=== PATIENT | male | born 1975 | race Caucasian/White ===

== ENCOUNTER 2019-03-20 10:44 | Inpatient (IN) | payer OTHER ==
[2019-03-20 11:32] VITALS: BMI 23.6
--- NOTE | 2019-03-20 12:32 | HP ---
CIWA Score Nausea/Vomitin Muscle Tremors: 2 Anxiety: 3 Agitation: 3 Paroxysmal Sweats: 1-Minimal Palms Moist Orientation: 0-Oriented Tacttile Disturbances: 1-Very Mild Itch/Numbness Auditory Disturbances: 1-Very Mild Visual Disturbances: 0-None Headache: 2-Mild CIWA-Ar Total Score: 15 - Admission Criteria OASAS Guidelines: Admission for Medically Managed Detox: Requires at least one of the followin. CIWA greater than 12 2. Seizures within the past 24 hours 3. Delirium tremens within the past 24 hours 4. Hallucinations within the past 24 hours 5. Acute intervention needed for co occurring medical disorder 6. Acute intervention needed for co occurring psychiatric disorder 7. Severe withdrawal that cannot be handled at a lower level of care (continued vomiting, continued diarrhea, abnormal vital signs) requiring intravenous medication and/or fluids 8. Admission ROS S - HPI Chief Complaint: i need help to stop drinking alcohol,marijuana Allergies/Adverse Reactions: Allergies Allergy/AdvReac Type Severity Reaction Status Date / Time No Known Allergies Allergy Verified 03/20/19 11:23 History of Present Illness: this 43 years old male with alcohol dependence,marijuana abused,seeking detox, withdrawal symptom, seen in [facility] last night, alcohol related seizure in 2016 syncope alcohol related,last 03/19/19 receiving medication at [facility] last detox in 2014 [place] ambulation with cane homeless, bipolar disorder,no med hepatitis c fx of right elbow 10/26 treated at [facility] with deformity - Ebola screening Have you traveled outside of the country in the last 21 days: No (N) Have you had contact with anyone from an Ebola affected area: No Do you have a fever: No - Review of Systems Constitutional: Chills, Loss of Appetite, Malaise, Night Sweats, Changes in sleep, Weakness, Unintentional Wgt. Loss EENT: reports: Nose Congestion Respiratory: reports: No Symptoms reported Cardiac: reports: No Symptoms Reported GI: reports: Nausea, Poor Appetite, Vomiting, Abdominal cramping : reports: No Symptoms Reported Musculoskeletal: reports: Back Pain, Muscle Pain Integumentary: reports: Dryness Neuro: reports: Headache, Tremors Endocrine: reports: No Symptoms Reported Hematology: reports: No Symptoms Reported Psychiatric: reports: No Sypmtoms Reported, Judgement Intact, Mood/Affect Appropiate, Orientated x3, other (bipolar disorder) Other Systems: Reviewed and Negative Patient History - Patient Medical History Hx Anemia: No Hx Asthma: No Hx Chronic Obstructive Pulmonary Disease (COPD): No Hx Cancer: No Hx Cardiac Disorders: No Hx Congestive Heart Failure: No Hx Hypertension: Yes (no med) Hx Hypercholesterolemia: No Hx Pacemaker: No HX Cerebrovascular Accident: No Hx Seizures: Yes (last 2015) Hx Dementia: No Hx Diabetes: No Hx Gastrointestinal Disorders: No Hx Liver Disease: No Hx Genitourinary Disorders: No Hx Sexually Transmitted Disorders: No Hx Renal Disease (ESRD): No Hx Thyroid Disease: No Hx Human Immunodeficiency Virus (HIV): No (2017 negative) Hx Hepatitis C: Yes (no treatment) Hx Depression: No Hx Suicide Attempt: No Hx Bipolar Disorder: Yes Hx Schizophrenia: No Other Medical History: no suicidal,no homicidal - Patient Surgical History Past Surgical History: No Other Surgical History: fx of right elbow 10/26 treated at [facility] - PPD History Previous Implant?: Yes Documented Results: Negative w/o proof Implanted On Prior [facility] Admission?: No PPD to be Administered?: Yes - Smoking Cessation Smoking history: Current every day smoker Have you smoked in the past 12 months: Yes Aproximately how many cigarettes per day: 20 Cigars Per Day: 0 Hx Chewing Tobacco Use: No Initiated information on smoking cessation: Yes 'Breaking Loose' booklet given: 03/20/19 - Substance & Tx. History Hx Alcohol Use: Yes Hx Substance Use: No Substance Use Type: Alcohol Hx Substance Use Treatment: Yes ([facility]) - Substances abused Alcohol Substance route: Oral Frequency: Daily Amount used: 6 pints of liquor,vodka,whiskey/2 of 6packs of 24 ozs of beer Age of first use: 12 Date of last use: 03/19/19 Marijuana/Hashish Substance route: Smoking Frequency: 1-2 times per week Amount used: 5$ Age of first use: 12 Date of last use: 03/19/19 Family Disease History - Family Disease History Family Disease History: Other: Father (alcohol,) Admission Physical Exam [facility] - Vital Signs Vital Signs: Vital Signs - 24 hr 03/20/19 11:12 Temperature 97.0 F L Pulse Rate 60 Respiratory 16 Rate Blood Pressure 127/88 - Physical General Appearance: Yes: Moderate Distress, Tremorous, Irritable, Sweating, Anxious HEENTM: Yes: Normal ENT Inspection, MISAEL, Pharynx Normal Respiratory: Yes: Lungs Clear, Normal Breath Sounds, No Respiratory Distress Neck: Yes: Within Normal Limits, Supple, Trachea in good position Breast: Yes: Within Normal Limits Cardiology: Yes: Within Normal Limits, Regular Rhythm, Regular Rate, S1, S2 Abdominal: Yes: Within Normal Limits, Normal Bowel Sounds, Non Tender, Flat, Soft Genitourinary: Yes: Within Normal Limits Back: Yes: Muscle Spasm Musculoskeletal: Yes: full range of Motion, Back pain, Muscle Pain Extremities: Yes: Within Normal Limits, Normal Range of Motion, Tremors, Other ( deformity of right elbow from prvious fx in 10/26 excoriation of skin both feet, poor hygiene) 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: Yes: 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, Fully Oriented, Alert, Motor Strength 5/5 Integumentary: Yes: Dry Lymphatic: Yes: Within Normal Limits - Diagnostic (1) Alcohol dependence with uncomplicated withdrawal Current Visit: Yes Status: Acute (2) Alcohol dependence with uncomplicated intoxication Current Visit: Yes Status: Acute (3) Alcohol related seizure Current Visit: Yes Status: Acute (4) Fracture of right elbow Current Visit: Yes Status: Acute (5) Acquired deformity of right elbow Current Visit: Yes Status: Acute (6) Dehydration Current Visit: Yes Status: Acute (7) Nicotine dependence Current Visit: Yes Status: Acute (8) Use of cane as ambulatory aid Current Visit: Yes Status: Acute (9) Hepatitis C Current Visit: Yes Status: Acute (10) Excoriation Current Visit: Yes Status: Acute Cleared for Admission S - Detox or Rehab [facility] Level of Care: Medically Managed (patient requested librium) Detox Regimen/Protocol: Librium Inpatient Rehab Admission - Rehab Decision to Admit Inpatient rehab admission?: No
[2019-03-20] MEDS ORDERED: chlordiazePOXIDE HCL 25 MG CAPSULE PO PRN (12:51)
[2019-03-20] MEDS ORDERED: MAG HYDROX/AL HYDROX/SIMETH 30 ML UNIT-DOSE CUP PO PRN (12:51)
[2019-03-20] MEDS ORDERED: MENTHOL/PHENOL 1 EACH UD MM PRN (12:51)
[2019-03-20] MEDS ORDERED: MAGNESIUM HYDROX 2400MG/30ML ORAL SUSPENSION 30 ML CUP PO PRN (12:51)
[2019-03-20] MEDS ORDERED: hydrOXYzine PAMOATE 25 MG CAPSULE (FP) PO PRN (12:51)
[2019-03-20] MEDS ORDERED: NICOTINE POLACRILEX 2 MG GUM BUC PRN (12:51)
[2019-03-20] MEDS ORDERED: ACETAMINOPHEN 325 MG TABLET (FP) PO PRN ×2 (12:51)
[2019-03-20] MEDS ORDERED: METHOCARBAMOL 500 MG TABLET PO PRN (12:51)
[2019-03-20] MEDS ORDERED: MAGNESIUM CITRATE 300 ML BOTTLE PO PRN (12:51)
[2019-03-20] MEDS ORDERED: BISMUTH SUBSALICYLATE 262 MG/15 ML BTL PO PRN (12:51)
[2019-03-20] MEDS ORDERED: TRIMETHOBENZAMIDE HCL 200MG/2ML INJ IM PRN (12:57)
[2019-03-20] MEDS: NICOTINE 21 MG/24 HOURS TOPICAL PATCH TD SCH (14:16)
[2019-03-20] MEDS: SILVER SULFADIAZINE 1% TOP CREAM 50 GM JAR TP SCH ×2 (15:34→22:55)
[2019-03-20] MEDS: chlordiazePOXIDE HCL 25 MG CAPSULE PO SCH ×2 (17:29→22:31)
[2019-03-20 17:56] LABS: HEMOGLOBIN 12.5 GM/dL (11.7-16.9); MCH 27.5 pg (25.7-33.7); MEAN PLT VOLUME 7.6 fl (7.5-11.1); PLATELET COUNT 213 K/MM3 (134-434); RBC 4.53 M/mm3 (4.00-5.60); RDW 16.1 % (11.9-15.9); WHITE BLOOD COUNT 5.1 K/mm3 (4.0-10.0)
[2019-03-20 18:19] LABS: ALBUMIN 4.2 g/dl (3.4-5.0); BILIRUBIN,TOTAL 0.4 mg/dL (0.2-1); CALCIUM 8.8 mg/dL (8.5-10.1); CREATININE 0.8 mg/dL (0.55-1.3); POTASSIUM 4.2 mmol/L (3.5-5.1); TOT PROT 8.3 g/dl (6.4-8.2)
[2019-03-20 18:22] LABS: BLOOD UREA NITROGEN 2.9 mg/dL (7-18)
[2019-03-20 19:48] LABS: EPI CELLS 4.1 /HPF (0-5/HPF); PH,URINE 5.5 (5.0-8.0); URINE APPEARANCE CLEAR; URINE BILIRUBIN NEGATIVE (NEGATIVE); URINE COLOR YELLOW; URINE GLUCOSE (UA) NEGATIVE (NEGATIVE); URINE KETONE NEGATIVE (NEGATIVE); URINE LEUK ESTERASE NEGATIVE (NEGATIVE); URINE NITRITE NEGATIVE (NEGATIVE); URINE PROTEIN 1+ (NEGATIVE); URINE RBC 1 /hpf (0-4); URINE WBC 5 /hpf (0-5)
[2019-03-20] MEDS: THIAMINE HCL 100 MG TABLET (FP) PO SCH (22:31)
[2019-03-21] MEDS: chlordiazePOXIDE HCL 25 MG CAPSULE PO SCH ×4 (06:13→22:10)
[2019-03-21 10:13] LABS: ALBUMIN 3.3 g/dl (3.4-5.0); BILIRUBIN,TOTAL 0.7 mg/dL (0.2-1); BLOOD UREA NITROGEN 5.4 mg/dL (7-18); CALCIUM 9.1 mg/dL (8.5-10.1); POTASSIUM 4.5 mmol/L (3.5-5.1)
--- NOTE | 2019-03-21 10:19 | CONSULT ---
[facility] Psychiatric Consult - Data Date of interview: 03/21/19 Admission source: [facility] Identifying data: Patient is a 43 year old but , father of one , unemployed, homeless, and does not receive any financial assistance. This is patient's first admission to detox at [facility]. Patient admitted to for alcohol dependence. Substance Abuse History: Smoking Cessation. Smoking history: Current every day smoker. Have you smoked in the past 12 months: Yes. Aproximately how many cigarettes per day: 20. Cigars Per Day: 0. Hx Chewing Tobacco Use: No. Initiated information on smoking cessation: Yes. 'Breaking Loose' booklet given : 03/20/19. - Substance & Tx. History. Hx Alcohol Use: Yes. Hx Substance Use : No. Substance Use Type: Alcohol. Hx Substance Use Treatment: Yes ([facility]). - Substances abused. Alcohol. Substance route: Oral. Frequency: Daily. Amount used: 6 pints of liquor,vodka,whiskey/2 of 6packs of 24 ozs of beer. Age of first use: 12. Date of last use: 03/19/19. Marijuana/Hashish. Substance route: Smoking. Frequency: 1-2 times per week. Amount used: 5$. Age of first use: 12. Date of last use: 03/19/19 Medical History: Hypertension, seizures (last 2015), Hep C Psychiatric History: Patient denies h/o psychiatric hospitalizations and suicide attempt. Patient reports seeing a physician approximately seven years ago who diagnosed him with mood disorder. He reports taking medications but does not recall the names or dosages of the medications. At present, patient reports stable mood and reports not needing psychiatric treatment. Physical/Sexual Abuse/Trauma History: denies. Mental Status Exam - Mental Status Exam Alert and Oriented to: Time, Place, Person Cognitive Function: Good Patient Appearance: Well Groomed Mood: Euthymic Affect: Appropriate Patient Behavior: Cooperative Voice Loudness: Normal Thought Process: Goal Oriented Thought Disorder: Not Present Hallucinations: Denies Suicidal Ideation: Denies Homicidal Ideation: Denies Insight/Judgement: Poor Sleep: Fair Appetite: Fair Muscle strength/Tone: Normal Gait/Station: Normal Psychiatric Findings - Problem List ([place] 1, 2,3) (1) Alcohol dependence with uncomplicated intoxication Current Visit: Yes Status: Acute (2) Alcohol dependence with uncomplicated withdrawal Current Visit: Yes Status: Acute (3) Nicotine dependence Current Visit: Yes Status: Acute - Initial Treatment Plan Initial Treatment Plan: Psychoeducation provided. Detoxification in progress. Observation.
[2019-03-21] MEDS: NICOTINE 21 MG/24 HOURS TOPICAL PATCH TD SCH (10:45)
[2019-03-21] MEDS: PRENATAL VITAMINS W/ FOLIC ACID TABLET (FP) PO SCH (10:45)
[2019-03-21] MEDS: SILVER SULFADIAZINE 1% TOP CREAM 50 GM JAR TP SCH ×2 (10:46→22:12)
--- NOTE | 2019-03-21 10:57 | EKG ---
Test Reason : Blood Pressure : / mmHG Vent. Rate : 068 BPM Atrial Rate : 068 BPM P-R Int : 170 ms QRS Dur : 086 ms QT Int : 388 ms P-R-T Axes : 024 003 040 degrees QTc Int : 412 ms NORMAL SINUS RHYTHM NORMAL ECG NO PREVIOUS ECGS AVAILABLE Confirmed by BRAD COREA MD ([id number]) on 03/21/2019 10:57:26 AM Referred By: Confirmed By:BRAD COREA MD
--- NOTE | 2019-03-21 12:12 | PN ---
S CIWA - CIWA Score Nausea/Vomitin-Mild Nausea/No Vomiting Muscle Tremors: 2 Anxiety: 3 Agitation: 2 Paroxysmal Sweats: 3 Orientation: 0-Oriented Tacttile Disturbances: 2-Mild Itch/Numbness/Burn Auditory Disturbances: 0-None Visual Disturbances: 0-None Headache: 0-None Present CIWA-Ar Total Score: 13 BHS Progress Note (SOAP) Subjective: interrupted sleep, sweats, shakes, rt leg , ankle pain Objective: 03/21/19 12:18 Vital Signs Temperature 98.2 F 03/21/19 09:42 Pulse Rate 93 H 03/21/19 09:42 Respiratory Rate 17 03/21/19 09:42 Blood Pressure 131/90 03/21/19 09:42 O2 Sat by Pulse Oximetry (%) Laboratory Tests 03/20/19 03/20/19 03/20/19 13:00 13:00 13:00 WBC 5.1 RBC 4.53 Hgb 12.5 Hct 39.0 MCV 86.0 MCH 27.5 MCHC 32.0 RDW 16.1 H Plt Count 213 MPV 7.6 Sodium Potassium Chloride Carbon Dioxide Anion Gap BUN Creatinine Est GFR (CKD-EPI)AfAm Est GFR (CKD-EPI)NonAf Random Glucose Calcium Total Bilirubin AST ALT Alkaline Phosphatase Total Protein Albumin Urine Color Yellow Urine Appearance Clear Urine pH 5.5 Ur Specific [place] 1.017 Urine Protein 1+ H Urine Glucose (UA) Negative Urine Ketones Negative Urine Blood Negative Urine Nitrite Negative Urine Bilirubin Negative Urine Urobilinogen 1.0 Ur Leukocyte Esterase Negative Urine WBC (Auto) 5 Urine RBC (Auto) 1 U Epithel Cells (Auto) 4.1 RPR Titer HIV 1&2 Antibody Screen Negative HIV P24 Antigen Negative 03/20/19 03/20/19 03/21/19 13:00 13:00 07:00 WBC RBC Hgb Hct MCV MCH MCHC RDW Plt Count MPV Sodium 139 138 Potassium 4.2 4.5 Chloride 100 98 Carbon Dioxide 30 35 H Anion Gap 9 5 L BUN 2.9 L* 5.4 L Creatinine 0.8 1.0 Est GFR (CKD-EPI)AfAm 125.92 105.62 Est GFR (CKD-EPI)NonAf 108.65 91.13 Random Glucose 129 H 92 Calcium 8.8 9.1 Total Bilirubin 0.4 0.7 AST 44 H 36 ALT 38 32 Alkaline Phosphatase 187 H 159 H Total Protein 8.3 H 7.0 Albumin 4.2 3.3 L Urine Color Urine Appearance Urine pH Ur Specific [place] Urine Protein Urine Glucose (UA) Urine Ketones Urine Blood Urine Nitrite Urine Bilirubin Urine Urobilinogen Ur Leukocyte Esterase Urine WBC (Auto) Urine RBC (Auto) U Epithel Cells (Auto) RPR Titer Nonreactive HIV 1&2 Antibody Screen HIV P24 Antigen pt aox3 lying in bed , uses a cane for ambulation Assessment: 03/21/19 12:19 withdrawal sx's rt leg, ankle pain - s/p surgery Plan: cont. present tx motrin prn increase fluids
[2019-03-21] MEDS: THIAMINE HCL 100 MG TABLET (FP) PO SCH (22:10)
[2019-03-22] MEDS: chlordiazePOXIDE HCL 25 MG CAPSULE PO SCH ×2 (06:31→10:35)
[2019-03-22] MEDS: NICOTINE 21 MG/24 HOURS TOPICAL PATCH TD SCH (10:35)
[2019-03-22] MEDS: PRENATAL VITAMINS W/ FOLIC ACID TABLET (FP) PO SCH (10:35)
[2019-03-22] MEDS: SILVER SULFADIAZINE 1% TOP CREAM 50 GM JAR TP SCH ×2 (10:36→22:46)
[2019-03-22] MEDS ORDERED: chlordiazePOXIDE HCL 10 MG CAPSULE PO PRN (17:00)
--- NOTE | 2019-03-22 18:02 | PN ---
S CIWA - CIWA Score Nausea/Vomitin-Mild Nausea/No Vomiting Muscle Tremors: 2 Anxiety: 3 Agitation: 3 Paroxysmal Sweats: 3 Orientation: 0-Oriented Tacttile Disturbances: 0-None Auditory Disturbances: 0-None Visual Disturbances: 0-None Headache: 0-None Present CIWA-Ar Total Score: 12 S Progress Note (SOAP) Subjective: constipation Chronic R knee pain Objective: 03/22/19 18:02 ambulates with a cane A & O x 3 Vital Signs Temperature 98.2 F 03/22/19 17:56 Pulse Rate 85 03/22/19 17:56 Respiratory Rate 20 03/22/19 17:56 Blood Pressure 117/82 03/22/19 17:56 O2 Sat by Pulse Oximetry (%) Assessment: 03/22/19 18:04 withdrawal sx Chronic pain Plan: Continue detox Pain med as needed
[2019-03-22] MEDS: IBUPROFEN 400 MG TABLET (FP) PO PRN (18:08)
[2019-03-22] MEDS: chlordiazePOXIDE HCL 10 MG CAPSULE PO SCH ×2 (18:08→22:23)
[2019-03-22] MEDS: MELATONIN 5 MG TABLETS PO PRN (22:23)
[2019-03-22] MEDS: THIAMINE HCL 100 MG TABLET (FP) PO SCH (22:23)
[2019-03-23] MEDS: chlordiazePOXIDE HCL 10 MG CAPSULE PO SCH ×3 (06:42→16:46)
[2019-03-23] MEDS: SILVER SULFADIAZINE 1% TOP CREAM 50 GM JAR TP SCH ×2 (10:15→22:12)
[2019-03-23] MEDS: PRENATAL VITAMINS W/ FOLIC ACID TABLET (FP) PO SCH (10:15)
[2019-03-23] MEDS: NICOTINE 21 MG/24 HOURS TOPICAL PATCH TD SCH (10:16)
--- NOTE | 2019-03-23 13:59 | PN ---
[facility] CIWA - CIWA Score Nausea/Vomitin-No Nausea/No Vomiting Muscle Tremors: 3 Anxiety: 2 Agitation: 3 Paroxysmal Sweats: 3 Orientation: 0-Oriented Tacttile Disturbances: 0-None Auditory Disturbances: 0-None Visual Disturbances: 0-None Headache: 0-None Present CIWA-Ar Total Score: 11 S Progress Note (SOAP) Subjective: leg pain sweats Objective: 03/23/19 13:59 Vital Signs Temperature 98.2 F 03/23/19 09:28 Pulse Rate 84 03/23/19 09:28 Respiratory Rate 16 03/23/19 09:28 Blood Pressure 123/87 03/23/19 09:28 O2 Sat by Pulse Oximetry (%) Laboratory Tests 03/20/19 03/20/19 03/20/19 13:00 13:00 13:00 WBC 5.1 RBC 4.53 Hgb 12.5 Hct 39.0 MCV 86.0 MCH 27.5 MCHC 32.0 RDW 16.1 H Plt Count 213 MPV 7.6 Sodium Potassium Chloride Carbon Dioxide Anion Gap BUN Creatinine Est GFR (CKD-EPI)AfAm Est GFR (CKD-EPI)NonAf Random Glucose Calcium Total Bilirubin AST ALT Alkaline Phosphatase Total Protein Albumin Urine Color Yellow Urine Appearance Clear Urine pH 5.5 Ur Specific [place] 1.017 Urine Protein 1+ H Urine Glucose (UA) Negative Urine Ketones Negative Urine Blood Negative Urine Nitrite Negative Urine Bilirubin Negative Urine Urobilinogen 1.0 Ur Leukocyte Esterase Negative Urine WBC (Auto) 5 Urine RBC (Auto) 1 U Epithel Cells (Auto) 4.1 RPR Titer HIV 1&2 Antibody Screen Negative HIV P24 Antigen Negative 03/20/19 03/20/19 03/21/19 13:00 13:00 07:00 WBC RBC Hgb Hct MCV MCH MCHC RDW Plt Count MPV Sodium 139 138 Potassium 4.2 4.5 Chloride 100 98 Carbon Dioxide 30 35 H Anion Gap 9 5 L BUN 2.9 L* 5.4 L Creatinine 0.8 1.0 Est GFR (CKD-EPI)AfAm 125.92 105.62 Est GFR (CKD-EPI)NonAf 108.65 91.13 Random Glucose 129 H 92 Calcium 8.8 9.1 Total Bilirubin 0.4 0.7 AST 44 H 36 ALT 38 32 Alkaline Phosphatase 187 H 159 H Total Protein 8.3 H 7.0 Albumin 4.2 3.3 L Urine Color Urine Appearance Urine pH Ur Specific [place] Urine Protein Urine Glucose (UA) Urine Ketones Urine Blood Urine Nitrite Urine Bilirubin Urine Urobilinogen Ur Leukocyte Esterase Urine WBC (Auto) Urine RBC (Auto) U Epithel Cells (Auto) RPR Titer Nonreactive HIV 1&2 Antibody Screen HIV P24 Antigen aaox3 ambulating no acute distress Assessment: 03/23/19 13:59 mild withdrawal sx Plan: continue detox increase fluids motrin 800mg prn roboxin prn
[2019-03-23] MEDS: THIAMINE HCL 100 MG TABLET (FP) PO SCH (22:12)
[2019-03-23] MEDS: MELATONIN 5 MG TABLETS PO PRN (22:12)
[2019-03-24] MEDS: chlordiazePOXIDE HCL 10 MG CAPSULE PO SCH (06:05)
[2019-03-24] MEDS: IBUPROFEN 400 MG TABLET (FP) PO PRN (08:46)
--- NOTE | 2019-03-24 08:58 | DS ---
[facility] Detox Discharge Summary Admission Date: 03/20/19 Discharge Date: 03/24/19 - History Present History: Alcohol Dependence - Physical Exam Results Vital Signs: Vital Signs Temperature 97.9 F 03/24/19 06:14 Pulse Rate 60 03/24/19 06:14 Respiratory Rate 18 03/24/19 06:14 Blood Pressure 127/89 03/24/19 06:14 O2 Sat by Pulse Oximetry (%) - Treatment Hospital Course: Detox Protocol Followed, Detoxed Safely, Responded well, Discharged Condition Good, Rehab Referral Accepted - Medication Discharge Medications: Ambulatory Orders NK [No Known Home Medication] 03/20/19 - Diagnosis (1) Acquired deformity of right elbow Current Visit: Yes Status: Acute (2) Alcohol dependence with uncomplicated withdrawal Current Visit: Yes Status: Chronic (3) Alcohol related seizure Current Visit: Yes Status: Suspected (4) Alcohol-induced mood disorder Current Visit: Yes Status: Acute (5) Excoriation Current Visit: Yes Status: Acute (6) Fracture of right elbow Current Visit: Yes Status: Acute (7) Hepatitis C Current Visit: Yes Status: Chronic Qualifiers: Viral hepatitis chronicity: chronic Hepatic coma status: without hepatic coma Qualified Code(s): B18.2 - Chronic viral hepatitis C (8) Nicotine dependence Current Visit: Yes Status: Acute Qualifiers: Nicotine product type: cigarettes Substance use status: uncomplicated Qualified Code(s): F17.210 - Nicotine dependence, cigarettes, uncomplicated (9) Use of cane as ambulatory aid Current Visit: Yes Status: Acute - AMA Did Patient Leave Against Medical Advice: No (referred to [facility] inpatient rehab)
[2019-03-24 09:17] VITALS: BP 140/89; PULSE 84; TEMP 97.7
[2019-03-24] MEDS: NICOTINE 21 MG/24 HOURS TOPICAL PATCH TD SCH ×2 (10:06→10:59)
[2019-03-24] MEDS: PRENATAL VITAMINS W/ FOLIC ACID TABLET (FP) PO SCH (10:07)
[2019-03-24] MEDS: SILVER SULFADIAZINE 1% TOP CREAM 50 GM JAR TP SCH (10:07)
== END 2019-03-24 12:45 | disposition home or self-care (01) | DRG 775 ==
LOC: YASAS 10:44 → Y6N 12:26
PROVIDERS: ADMIT Surgery; ATTEND Surgery
PROC: HZ2ZZZZ Detoxification Services for Substance Abuse Treatment (ICD-10-PCS; principal; 2019-03-20)
DX: F10.230 Alcohol dependence with withdrawal, uncomplicated (principal); F10.220 Alcohol dependence with intoxication, uncomplicated; F17.210 Nicotine dependence, cigarettes, uncomplicated; F10.24 Alcohol dependence with alcohol-induced mood disorder; F31.9 Bipolar disorder, unspecified; E86.0 Dehydration; I10 Essential (primary) hypertension; B18.2 Chronic viral hepatitis C; M21.921 Unspecified acquired deformity of right upper arm; Z86.69 Personal history of other diseases of the nervous system and sense organs; Z87.81 Personal history of (healed) traumatic fracture; Z99.89 Dependence on other enabling machines and devices
CPT/HCPCS: 36415; 80053; 81003; 85027; 86593; 87389; 93005; 93010

== ENCOUNTER 2019-06-26 11:47 | Inpatient (IN) | payer OTHER ==
[2019-06-26 15:14] VITALS: BMI 23.0
--- NOTE | 2019-06-26 18:20 | HP ---
CIWA Score Nausea/Vomitin Muscle Tremors: 4-Moderate,w/Arms Extend Anxiety: 3 Agitation: 0-Normal Activity Paroxysmal Sweats: 2 Orientation: 1-Uncertain about Date Tacttile Disturbances: 0-None Auditory Disturbances: 0-None Visual Disturbances: 0-None Headache: 3-Moderate CIWA-Ar Total Score: 16 - Admission Criteria OASAS Guidelines: Admission for Medically Managed Detox: Requires at least one of the followin. CIWA greater than 12 2. Seizures within the past 24 hours 3. Delirium tremens within the past 24 hours 4. Hallucinations within the past 24 hours 5. Acute intervention needed for co occurring medical disorder 6. Acute intervention needed for co occurring psychiatric disorder 7. Severe withdrawal that cannot be handled at a lower level of care (continued vomiting, continued diarrhea, abnormal vital signs) requiring intravenous medication and/or fluids 8. Patient presents the following: CIWA greater than 12 Admission Criteria Met: Admission criteria met Admission ROS S - HPI Chief Complaint: alcohol withdrawal sx Allergies/Adverse Reactions: Allergies Allergy/AdvReac Type Severity Reaction Status Date / Time No Known Allergies Allergy Verified 06/26/19 15:08 History of Present Illness: Patient is a 44 yo male, homeless, with hx of alcohol dependence is here seeking inpatient detox d/t withdrawal sx, patient was referred from [facility] emergency room after evaluation of a fall today. Reports currently drinks 2 litters of liquor per day, first drink at 12 yo, reports daily drinking in the past eight years, last drink yesterday. Longest period of sobriety six months, relapsed August 2019, last detox [facility] March 2019 but keeps relapsing. Reports hx alcohol withdrawal sx in 2016 and frequent syncope , with last episode two months ago. PMHX: Hep C (untreated) Psych: bipolar and depression. Denies SI/HI Exam Limitations: No Limitations - Ebola screening Have you traveled outside of the country in the last 21 days: No Have you had contact with anyone from an Ebola affected area: No Do you have a fever: No - Review of Systems Constitutional: Chills, Loss of Appetite, Changes in sleep, Unintentional Wgt. Loss EENT: reports: Other (pain left brow) Respiratory: reports: No Symptoms reported Cardiac: reports: No Symptoms Reported GI: reports: Nausea, Poor Appetite, Poor Fluid Intake, Indigestion : reports: Dysuria Musculoskeletal: reports: Other (left shoulder pain) Integumentary: reports: No Symptoms Reported Neuro: reports: See HPI, Headache Endocrine: reports: No Symptoms Reported Hematology: reports: No Symptoms Reported Psychiatric: reports: Orientated x3, Depressed Other Systems: Reviewed and Negative Patient History - Patient Medical History Hx Anemia: No Hx Asthma: No Hx Chronic Obstructive Pulmonary Disease (COPD): No Hx Cancer: No Hx Cardiac Disorders: No Hx Congestive Heart Failure: No Hx Hypertension: Yes (no med) Hx Hypercholesterolemia: No Hx Pacemaker: No HX Cerebrovascular Accident: No Hx Seizures: Yes (last 2015) Hx Dementia: No Hx Diabetes: No Hx Gastrointestinal Disorders: No Hx Liver Disease: No Hx Genitourinary Disorders: No Hx Sexually Transmitted Disorders: No Hx Renal Disease (ESRD): No Hx Thyroid Disease: No Hx Human Immunodeficiency Virus (HIV): No (2016 negative) Hx Hepatitis C: Yes (no treatment) Hx Depression: No Hx Suicide Attempt: No Hx Bipolar Disorder: Yes Hx Schizophrenia: No - Patient Surgical History Past Surgical History: No Other Surgical History: fx of right elbow 10/26 treated at [facility] - PPD History Date: 03/22/19 - Smoking Cessation Smoking history: Current every day smoker Have you smoked in the past 12 months: Yes Aproximately how many cigarettes per day: 20 Cigars Per Day: 0 Hx Chewing Tobacco Use: No Initiated information on smoking cessation: Yes 'Breaking Loose' booklet given: 06/26/19 - Substance & Tx. History Hx Alcohol Use: Yes Substance Use Type: Alcohol Hx Substance Use Treatment: Yes ([facility] March 2019) - Substances abused Alcohol Substance route: Oral Frequency: Daily Amount used: 6 pints of liquor,vodka,whiskey/2 of 6packs of 24 ozs of beer Age of first use: 12 Date of last use: 06/25/19 Marijuana/Hashish Substance route: Smoking Frequency: 1-2 times per week Amount used: 1 joint/day Age of first use: 12 Date of last use: 06/25/19 Admission Physical Exam BHS - Vital Signs Vital Signs: Vital Signs - 24 hr 06/26/19 06/26/19 15:02 17:35 Temperature 97.6 F 97.6 F Pulse Rate 75 75 Respiratory 18 18 Rate Blood Pressure 170/115 H 170/115 H - Physical General Appearance: Yes: Disheveled (unkempt/ malodorous), Moderate Distress, Tremorous, Anxious HEENTM: Yes: EOMI, Hearing grossly Normal, Normal ENT Inspection, Normocephalic , Normal Voice, MISAEL, Pharynx Normal, Tm's normal, Other (laceration left brow w / stitches , no erythema) Respiratory: Yes: Chest Non-Tender, Lungs Clear, Normal Breath Sounds, No Respiratory Distress, No Accessory Muscle Use Neck: Yes: Within Normal Limits Breast: Yes: Breast Exam Deferred Cardiology: Yes: Regular Rhythm, Regular Rate, Murmur Abdominal: Yes: Normal Bowel Sounds, Non Tender, Flat, Soft Genitourinary: Yes: Within Normal Limits Back: Yes: Normal Inspection Musculoskeletal: Yes: full range of Motion, Gait Steady, Pelvis Stable Extremities: Yes: Normal Capillary Refill, Normal Inspection, Normal Range of Motion, Non-Tender, Tremors, Other (+ white scaly patches left lower extremities ) 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, Fully Oriented, Alert, Motor Strength 5/5, Normal Response, Depressed Affect Integumentary: Yes: Normal Color, Warm, Diaphoresis Lymphatic: Yes: Within Normal Limits - Diagnostic (1) Acquired deformity of right elbow Current Visit: Yes Status: Acute (2) Nicotine dependence Current Visit: Yes Status: Acute Qualifiers: Nicotine product type: cigarettes Substance use status: uncomplicated Qualified Code(s): F17.210 - Nicotine dependence, cigarettes, uncomplicated (3) Use of cane as ambulatory aid Current Visit: Yes Status: Acute (4) Alcohol dependence with uncomplicated withdrawal Current Visit: Yes Status: Chronic (5) Hepatitis C Current Visit: Yes Status: Chronic Qualifiers: Viral hepatitis chronicity: chronic Hepatic coma status: without hepatic coma Qualified Code(s): B18.2 - Chronic viral hepatitis C Cleared for Admission S - Detox or Rehab [facility] Level of Care: Medically Managed Detox Regimen/Protocol: Librium Breathalyzer - Breathalyzer Breathalyzer: 0.102 Urine Drug Screen - Test Device Lot number: [id number] Expiration date: 12/05/20 - Control Is test valid?: Yes - Results Drug screen NEGATIVE: No Urine drug screen results: THC-Marijuana, BZO-Benzodiazepines, BUP-Suboxone Inpatient Rehab Admission - Rehab Decision to Admit Inpatient rehab admission?: No
[2019-06-26] MEDS ORDERED: MAGNESIUM HYDROX 2400MG/30ML ORAL SUSPENSION 30 ML CUP PO PRN (18:22)
[2019-06-26] MEDS ORDERED: ACETAMINOPHEN 325 MG TABLET (FP) PO PRN ×2 (18:22)
[2019-06-26] MEDS ORDERED: METHOCARBAMOL 500 MG TABLET PO PRN (18:22)
[2019-06-26] MEDS ORDERED: IBUPROFEN 400 MG TABLET (FP) PO PRN (18:22)
[2019-06-26] MEDS ORDERED: MAG HYDROX/AL HYDROX/SIMETH 30 ML UNIT-DOSE CUP PO PRN (18:22)
[2019-06-26] MEDS ORDERED: MENTHOL/PHENOL 1 EACH UD MM PRN (18:22)
[2019-06-26] MEDS ORDERED: hydrOXYzine PAMOATE 25 MG CAPSULE (FP) PO PRN (18:22)
[2019-06-26] MEDS ORDERED: NICOTINE POLACRILEX 2 MG GUM BUC PRN (18:22)
[2019-06-26] MEDS ORDERED: chlordiazePOXIDE HCL 25 MG CAPSULE PO PRN (18:22)
[2019-06-26] MEDS ORDERED: BISMUTH SUBSALICYLATE 524 MG/30 ML UD PO PRN (18:22)
[2019-06-26] MEDS ORDERED: MAGNESIUM CITRATE 300 ML BOTTLE PO PRN (18:22)
[2019-06-26] MEDS: chlordiazePOXIDE HCL 25 MG CAPSULE PO SCH (22:09)
[2019-06-26] MEDS: THIAMINE HCL 100 MG TABLET (FP) PO SCH (22:09)
[2019-06-27] MEDS: chlordiazePOXIDE HCL 25 MG CAPSULE PO SCH ×4 (06:22→22:09)
[2019-06-27 10:10] LABS: HEMATOCRIT 42.1 % (35.4-49); HEMOGLOBIN 14.1 GM/dL (11.7-16.9); MCH 29.8 pg (25.7-33.7); MCHC 33.5 g/dl (32.0-35.9); MEAN PLT VOLUME 7.3 fl (7.5-11.1); PLATELET COUNT 317 K/MM3 (134-434); RBC 4.73 M/mm3 (4.00-5.60); RDW 17.4 % (11.9-15.9); WHITE BLOOD COUNT 4.6 K/mm3 (4.0-10.0)
[2019-06-27 10:21] LABS: ALBUMIN 3.7 g/dl (3.4-5.0); BILIRUBIN,TOTAL 0.8 mg/dL (0.2-1); BLOOD UREA NITROGEN 5.4 mg/dL (7-18); CALCIUM 9.5 mg/dL (8.5-10.1); CREATININE 0.7 mg/dL (0.55-1.3); POTASSIUM 3.9 mmol/L (3.5-5.1)
[2019-06-27] MEDS: PANTOPRAZOLE 20 MG TABLET (FP) PO SCH (10:21)
[2019-06-27] MEDS: NICOTINE 14 MG/24 HOURS TOPICAL PATCH TD SCH (10:21)
[2019-06-27] MEDS: PRENATAL VITAMINS W/ FOLIC ACID TABLET (FP) PO SCH (10:21)
--- NOTE | 2019-06-27 10:44 | CONSULT ---
[facility] Psychiatric Consult - Data Date of interview: 06/27/19 Admission source: [facility] Identifying data: Readmission to [facility] for this 44 y/o male self- referred for detoxification (alcohol, cannabis). Seen at [address] [place] [address]. Patient is , father of one, homeless, unemployed and deprived of financial assistance (no longer with food stamps). Substance Abuse History: Discussed in this session. Patient confirms current [facility] report on his addictions : Smoking history: Current every day smoker. Have you smoked in the past 12 months: Yes. Aproximately how many cigarettes per day : 20. Cigars Per Day: 0. Hx Chewing Tobacco Use: No. Initiated information on smoking cessation: Yes. 'Breaking Loose' booklet given: 06/26/19. - Substance & Tx. History. Hx Alcohol Use: Yes. Substance Use Type: Alcohol. Hx Substance Use Treatment: Yes ([facility] March 2019). - Substances abused. Alcohol. Substance route: Oral. Frequency: Daily. Amount used: 6 pints of liquor,vodka,whiskey/2 of 6packs of 24 ozs of beer. Age of first use: 12. Date of last use: 06/25/19. Marijuana/Hashish. Substance route: Smoking. Frequency: 1-2 times per week. Amount used: 1 joint/day. Age of first use: 12. Date of last use: 06/25/19 Medical History: Remarkable for hepatitis C (untreated), antecedent of withdrawal-related seizures, hypertension and current swelling of left supraorbital area (from a fall, while intoxicated, in the streets a week ago; sutures in place). Psychiatric History: No reported history of psychiatric hospitalizations. Patient made a vague allusion to having diagnosed with bipolar disorder in the past. Denies history of consistent [facility] care. Mr Leonardo denies history of suicide attempts. Physical/Sexual Abuse/Trauma History: No history of abuse reported. Additional Comment: Urine drug screen results: THC-Marijuana, BZO- Benzodiazepines, BUP-Suboxone. Noted. Mental Status Exam - Mental Status Exam Alert and Oriented to: Time, Place, Person Cognitive Function: Good Patient Appearance: Unkempt, Disheveled Mood: Withdrawn, Hopeful Affect: Mood Congruent, Constricted Patient Behavior: Fatigued, Appropriate, Cooperative Speech Pattern: Clear, Appropriate Voice Loudness: Normal Thought Process: Goal Oriented Thought Disorder: Not Present Hallucinations: Denies Suicidal Ideation: Denies Homicidal Ideation: Denies Insight/Judgement: Poor Sleep: Well Appetite: Good Muscle strength/Tone: Normal Gait/Station: Other (not observed; supine for entire interview) Psychiatric Findings - Problem List ([place] 1, 2,3) (1) Alcohol dependence with uncomplicated withdrawal Current Visit: Yes Status: Acute (2) Cannabis dependence Current Visit: Yes Status: Chronic (3) Nicotine dependence Current Visit: Yes Status: Chronic Qualifiers: Nicotine product type: cigarettes Substance use status: uncomplicated Qualified Code(s): F17.210 - Nicotine dependence, cigarettes, uncomplicated (4) Substance induced mood disorder Current Visit: Yes Status: Chronic - Initial Treatment Plan Initial Treatment Plan: Psychoeducation. Sleep hygiene. Support. Detoxification. MAT services for relapse prevention : recommended. AA meetings. Groups. Observation.
--- NOTE | 2019-06-27 13:28 | PN ---
S CIWA - CIWA Score Nausea/Vomitin Muscle Tremors: 2 Anxiety: 2 Agitation: 2 Paroxysmal Sweats: 1-Minimal Palms Moist Orientation: 0-Oriented Tacttile Disturbances: 1-Very Mild Itch/Numbness Auditory Disturbances: 0-None Visual Disturbances: 0-None Headache: 2-Mild CIWA-Ar Total Score: 12 BHS Progress Note (SOAP) Subjective: alert,irritable,anxious,interrupted sleep,tremor Objective: 06/27/19 13:27 Vital Signs Temperature 98.7 F 06/27/19 09:21 Pulse Rate 80 06/27/19 09:21 Respiratory Rate 20 06/27/19 09:21 Blood Pressure 126/80 06/27/19 09:21 O2 Sat by Pulse Oximetry (%) Laboratory Last Values WBC 4.6 K/mm3 (4.0-10.0) 06/27/19 07:00 RBC 4.73 M/mm3 (4.00-5.60) 06/27/19 07:00 Hgb 14.1 GM/dL (11.7-16.9) 06/27/19 07:00 Hct 42.1 % (35.4-49) 06/27/19 07:00 MCV 89.0 fl (80-96) 06/27/19 07:00 MCH 29.8 pg (25.7-33.7) 06/27/19 07:00 MCHC 33.5 g/dl (32.0-35.9) 06/27/19 07:00 RDW 17.4 % (11.9-15.9) H 06/27/19 07:00 Plt Count 317 K/MM3 (134-434) D 06/27/19 07:00 MPV 7.3 fl (7.5-11.1) L 06/27/19 07:00 Sodium 137 mmol/L (136-145) 06/27/19 07:00 Potassium 3.9 mmol/L (3.5-5.1) 06/27/19 07:00 Chloride 99 mmol/L (98-107) 06/27/19 07:00 Carbon Dioxide 31 mmol/L (21-32) 06/27/19 07:00 Anion Gap 7 MMOL/L (8-16) L 06/27/19 07:00 BUN 5.4 mg/dL (7-18) L 06/27/19 07:00 Creatinine 0.7 mg/dL (0.55-1.3) 06/27/19 07:00 Est GFR (CKD-EPI)AfAm 132.09 06/27/19 07:00 Est GFR (CKD-EPI)NonAf 113.97 06/27/19 07:00 Random Glucose 85 mg/dL (74-106) 06/27/19 07:00 Calcium 9.5 mg/dL (8.5-10.1) 06/27/19 07:00 Total Bilirubin 0.8 mg/dL (0.2-1) 06/27/19 07:00 AST 36 U/L (15-37) 06/27/19 07:00 ALT 34 U/L (13-61) 06/27/19 07:00 Alkaline Phosphatase 124 U/L (45-117) H 06/27/19 07:00 Total Protein 8.0 g/dl (6.4-8.2) 06/27/19 07:00 Albumin 3.7 g/dl (3.4-5.0) 06/27/19 07:00 RPR Titer Nonreactive (NONREACTIVE) 06/27/19 07:00 Assessment: 06/27/19 13:27 withdrawal symptom Plan: continue detox librium regimen
[2019-06-27] MEDS: THIAMINE HCL 100 MG TABLET (FP) PO SCH (22:09)
[2019-06-28] MEDS: chlordiazePOXIDE HCL 25 MG CAPSULE PO SCH ×4 (05:10→22:06)
[2019-06-28] MEDS: PRENATAL VITAMINS W/ FOLIC ACID TABLET (FP) PO SCH (10:18)
[2019-06-28] MEDS: PANTOPRAZOLE 20 MG TABLET (FP) PO SCH (10:19)
[2019-06-28] MEDS: NICOTINE 14 MG/24 HOURS TOPICAL PATCH TD SCH (10:19)
--- NOTE | 2019-06-28 13:33 | PN ---
S CIWA - CIWA Score Nausea/Vomitin-No Nausea/No Vomiting Muscle Tremors: 3 Anxiety: 4-Mod. Anxious/Guarded Agitation: 3 Paroxysmal Sweats: 3 Orientation: 0-Oriented Tacttile Disturbances: 0-None Auditory Disturbances: 0-None Visual Disturbances: 1-Very Mild Sensitivity Headache: 0-None Present CIWA-Ar Total Score: 14 BHS Progress Note (SOAP) Subjective: Interrupted Sleep, Sweating, Anxious, Poor Appetite. Objective: PATIENT A & O X 3, OBSERVED AMBULATING ON DETOX UNIT UNASSISTED. IN NO ACUTE DISTRESS. 06/28/19 13:32 Vital Signs Temperature 97.9 F 06/28/19 13:20 Pulse Rate 104 H 06/28/19 13:20 Respiratory Rate 20 06/28/19 13:20 Blood Pressure 133/96 06/28/19 13:20 O2 Sat by Pulse Oximetry (%) Laboratory Tests 06/27/19 06/27/19 06/27/19 07:00 07:00 07:00 WBC 4.6 RBC 4.73 Hgb 14.1 Hct 42.1 MCV 89.0 MCH 29.8 MCHC 33.5 RDW 17.4 H Plt Count 317 D MPV 7.3 L Sodium 137 Potassium 3.9 Chloride 99 Carbon Dioxide 31 Anion Gap 7 L BUN 5.4 L Creatinine 0.7 Est GFR (CKD-EPI)AfAm 132.09 Est GFR (CKD-EPI)NonAf 113.97 Random Glucose 85 Calcium 9.5 Total Bilirubin 0.8 AST 36 ALT 34 Alkaline Phosphatase 124 H Total Protein 8.0 Albumin 3.7 RPR Titer Nonreactive LABS NOTED. Assessment: 06/28/19 13:32 WITHDRAWAL SYMPTOMS. Plan: CONTINUE DETOX. ENSURE PO FOR CALORIC SUPPLEMENTATION.
[2019-06-28] MEDS: THIAMINE HCL 100 MG TABLET (FP) PO SCH (22:06)
[2019-06-28] MEDS: MELATONIN 5 MG TABLETS PO PRN (22:07)
[2019-06-29] MEDS ORDERED: chlordiazePOXIDE HCL 10 MG CAPSULE PO PRN
[2019-06-29] MEDS: chlordiazePOXIDE HCL 10 MG CAPSULE PO SCH ×4 (05:39→22:14)
[2019-06-29 09:16] LABS: EPI CELLS 11.1 /HPF (0-5/HPF); HYALINE CASTS 103 /lpf (0-8); URINE APPEARANCE CLEAR; URINE BACTERIA 8.6 /hpf (NEGATIVE); URINE BILIRUBIN NEGATIVE (NEGATIVE); URINE COLOR YELLOW; URINE GLUCOSE (UA) NEGATIVE (NEGATIVE); URINE KETONE NEGATIVE (NEGATIVE); URINE LEUK ESTERASE 1+ (NEGATIVE); URINE NITRITE NEGATIVE (NEGATIVE); URINE PROTEIN 1+ (NEGATIVE); URINE RBC 1 /hpf (0-4); URINE WBC 8 /hpf (0-5)
--- NOTE | 2019-06-29 10:11 | PN ---
[facility] CIWA - CIWA Score Nausea/Vomitin-Mild Nausea/No Vomiting Muscle Tremors: 2 Anxiety: 3 Agitation: 2 Paroxysmal Sweats: 1-Minimal Palms Moist Orientation: 0-Oriented Tacttile Disturbances: 0-None Auditory Disturbances: 0-None Visual Disturbances: 0-None Headache: 0-None Present CIWA-Ar Total Score: 9 S Progress Note (SOAP) Subjective: doing well with librium detox regimen trouble to fall asleep last night feeling tired prefer stay in bed today Objective: 06/29/19 10:09 Vital Signs Temperature 97.7 F 06/29/19 09:18 Pulse Rate 74 06/29/19 09:18 Respiratory Rate 18 06/29/19 09:18 Blood Pressure 108/73 06/29/19 09:18 O2 Sat by Pulse Oximetry (%) Laboratory Last Values WBC 4.6 K/mm3 (4.0-10.0) 06/27/19 07:00 RBC 4.73 M/mm3 (4.00-5.60) 06/27/19 07:00 Hgb 14.1 GM/dL (11.7-16.9) 06/27/19 07:00 Hct 42.1 % (35.4-49) 06/27/19 07:00 MCV 89.0 fl (80-96) 06/27/19 07:00 MCH 29.8 pg (25.7-33.7) 06/27/19 07:00 MCHC 33.5 g/dl (32.0-35.9) 06/27/19 07:00 RDW 17.4 % (11.9-15.9) H 06/27/19 07:00 Plt Count 317 K/MM3 (134-434) D 06/27/19 07:00 MPV 7.3 fl (7.5-11.1) L 06/27/19 07:00 Sodium 137 mmol/L (136-145) 06/27/19 07:00 Potassium 3.9 mmol/L (3.5-5.1) 06/27/19 07:00 Chloride 99 mmol/L (98-107) 06/27/19 07:00 Carbon Dioxide 31 mmol/L (21-32) 06/27/19 07:00 Anion Gap 7 MMOL/L (8-16) L 06/27/19 07:00 BUN 5.4 mg/dL (7-18) L 06/27/19 07:00 Creatinine 0.7 mg/dL (0.55-1.3) 06/27/19 07:00 Est GFR (CKD-EPI)AfAm 132.09 06/27/19 07:00 Est GFR (CKD-EPI)NonAf 113.97 06/27/19 07:00 Random Glucose 85 mg/dL (74-106) 06/27/19 07:00 Calcium 9.5 mg/dL (8.5-10.1) 06/27/19 07:00 Total Bilirubin 0.8 mg/dL (0.2-1) 06/27/19 07:00 AST 36 U/L (15-37) 06/27/19 07:00 ALT 34 U/L (13-61) 06/27/19 07:00 Alkaline Phosphatase 124 U/L (45-117) H 06/27/19 07:00 Total Protein 8.0 g/dl (6.4-8.2) 06/27/19 07:00 Albumin 3.7 g/dl (3.4-5.0) 06/27/19 07:00 Urine Color Yellow 06/29/19 07:40 Urine Appearance Clear 06/29/19 07:40 Urine pH 8.0 (5.0-8.0) D 06/29/19 07:40 Ur Specific [place] 1.021 (1.010-1.035) 06/29/19 07:40 Urine Protein 1+ (NEGATIVE) H 06/29/19 07:40 Urine Glucose (UA) Negative (NEGATIVE) 06/29/19 07:40 Urine Ketones Negative (NEGATIVE) 06/29/19 07:40 Urine Blood Negative (NEGATIVE) 06/29/19 07:40 Urine Nitrite Negative (NEGATIVE) 06/29/19 07:40 Urine Bilirubin Negative (NEGATIVE) 06/29/19 07:40 Urine Urobilinogen 1.0 mg/dL (0.2-1.0) 06/29/19 07:40 Ur Leukocyte Esterase 1+ (NEGATIVE) H 06/29/19 07:40 Urine WBC (Auto) 8 /hpf (0-5) 06/29/19 07:40 Urine RBC (Auto) 1 /hpf (0-4) 06/29/19 07:40 Urine Casts (Auto) 103 /lpf (0-8) 06/29/19 07:40 U Epithel Cells (Auto) 11.1 /HPF (0-5/HPF) 06/29/19 07:40 Urine Bacteria (Auto) 8.6 /hpf (NEGATIVE) 06/29/19 07:40 RPR Titer Nonreactive (NONREACTIVE) 06/27/19 07:00 lab noted ahemoturea uti bactrim ds bid x 5 days 06/29/19 10:12 Assessment: 06/29/19 10:13 alcohol withdrawal sx Plan: continue librium detox regimen
[2019-06-29] MEDS: SULFAMETHOXAZOLE/TRIMETHOPRIM 800MG/160MG D.S. TABLET PO SCH ×2 (10:17→22:14)
[2019-06-29] MEDS: PRENATAL VITAMINS W/ FOLIC ACID TABLET (FP) PO SCH (10:18)
[2019-06-29] MEDS: NICOTINE 14 MG/24 HOURS TOPICAL PATCH TD SCH (10:18)
[2019-06-29] MEDS: PANTOPRAZOLE 20 MG TABLET (FP) PO SCH (10:47)
[2019-06-29] MEDS: THIAMINE HCL 100 MG TABLET (FP) PO SCH (22:14)
[2019-06-29] MEDS: MELATONIN 5 MG TABLETS PO PRN (22:14)
[2019-06-30] MEDS ORDERED: chlordiazePOXIDE HCL 10 MG CAPSULE PO SCH (05:00)
[2019-06-30] MEDS: PRENATAL VITAMINS W/ FOLIC ACID TABLET (FP) PO SCH (10:24)
[2019-06-30] MEDS: SULFAMETHOXAZOLE/TRIMETHOPRIM 800MG/160MG D.S. TABLET PO SCH (10:24)
[2019-06-30] MEDS: NICOTINE 14 MG/24 HOURS TOPICAL PATCH TD SCH (10:25)
[2019-06-30] MEDS: PANTOPRAZOLE 20 MG TABLET (FP) PO SCH (13:07)
[2019-06-30 13:19] VITALS: BP 121/86; PULSE 67; TEMP 97.1
--- NOTE | 2019-06-30 13:49 | PN ---
S CIWA - CIWA Score Nausea/Vomitin-No Nausea/No Vomiting Muscle Tremors: 1-None Visible, but [place] Anxiety: 2 Agitation: 2 Paroxysmal Sweats: No Perspiration Orientation: 0-Oriented Tacttile Disturbances: 0-None Auditory Disturbances: 0-None Visual Disturbances: 0-None Headache: 1-Very Mild CIWA-Ar Total Score: 6 BHS Progress Note (SOAP) Subjective: ALERT,IRRITABLE,ANXIOUS,INTERRUPTED SLEEP Objective: 06/30/19 13:48 Vital Signs Temperature 97.1 F L 06/30/19 13:18 Pulse Rate 67 06/30/19 13:18 Respiratory Rate 18 06/30/19 13:18 Blood Pressure 121/86 06/30/19 13:18 O2 Sat by Pulse Oximetry (%) Assessment: 06/30/19 13:48 WITHDRAWAL SYMPTOM Plan: CONTINUE DETOX LIBRIUM REGIMEN,DISCHARGE IN AM
--- NOTE | 2019-06-30 15:00 | PN ---
S Progress Note Note: PATIENT WOULD LIKE TO LEAVE TODAY,STATED HE IS FEELING WELL,STABLE FOR DISCHARGE , FOLLOW UP WITH AFTER CARE PROGRAM ARRANGEMENT
--- NOTE | 2019-06-30 15:05 | DS ---
[facility] Detox Discharge Summary Admission Date: 06/26/19 Discharge Date: 06/30/19 - History Present History: Alcohol Dependence, Cannabis Dependence Additional Comments: PATIENT IS STABLE FOR DISCHARGE,FOLLOW UP WITH AFTER CARE PROGRAM ARRANGEMENT Pertinent Past History: OLD DEFORMITY OF RIGHT ELBOW HISTORY OF AMBULATION WITH CANE SYNCOPE ALCOHOL RELATED SEIZURE - Physical Exam Results Vital Signs: Vital Signs Temperature 97.1 F L 06/30/19 13:18 Pulse Rate 67 06/30/19 13:18 Respiratory Rate 18 06/30/19 13:18 Blood Pressure 121/86 06/30/19 13:18 O2 Sat by Pulse Oximetry (%) Pertinent Admission Physical Exam Findings: WITHDRAWAL SIGNS AND SYMPTOM Laboratory Last Values WBC 4.6 K/mm3 (4.0-10.0) 06/27/19 07:00 RBC 4.73 M/mm3 (4.00-5.60) 06/27/19 07:00 Hgb 14.1 GM/dL (11.7-16.9) 06/27/19 07:00 Hct 42.1 % (35.4-49) 06/27/19 07:00 MCV 89.0 fl (80-96) 06/27/19 07:00 MCH 29.8 pg (25.7-33.7) 06/27/19 07:00 MCHC 33.5 g/dl (32.0-35.9) 06/27/19 07:00 RDW 17.4 % (11.9-15.9) H 06/27/19 07:00 Plt Count 317 K/MM3 (134-434) D 06/27/19 07:00 MPV 7.3 fl (7.5-11.1) L 06/27/19 07:00 Sodium 137 mmol/L (136-145) 06/27/19 07:00 Potassium 3.9 mmol/L (3.5-5.1) 06/27/19 07:00 Chloride 99 mmol/L (98-107) 06/27/19 07:00 Carbon Dioxide 31 mmol/L (21-32) 06/27/19 07:00 Anion Gap 7 MMOL/L (8-16) L 06/27/19 07:00 BUN 5.4 mg/dL (7-18) L 06/27/19 07:00 Creatinine 0.7 mg/dL (0.55-1.3) 06/27/19 07:00 Est GFR (CKD-EPI)AfAm 132.09 06/27/19 07:00 Est GFR (CKD-EPI)NonAf 113.97 06/27/19 07:00 Random Glucose 85 mg/dL (74-106) 06/27/19 07:00 Calcium 9.5 mg/dL (8.5-10.1) 06/27/19 07:00 Total Bilirubin 0.8 mg/dL (0.2-1) 06/27/19 07:00 AST 36 U/L (15-37) 06/27/19 07:00 ALT 34 U/L (13-61) 06/27/19 07:00 Alkaline Phosphatase 124 U/L (45-117) H 06/27/19 07:00 Total Protein 8.0 g/dl (6.4-8.2) 06/27/19 07:00 Albumin 3.7 g/dl (3.4-5.0) 06/27/19 07:00 Urine Color Yellow 06/29/19 07:40 Urine Appearance Clear 06/29/19 07:40 Urine pH 8.0 (5.0-8.0) D 06/29/19 07:40 Ur Specific [place] 1.021 (1.010-1.035) 06/29/19 07:40 Urine Protein 1+ (NEGATIVE) H 06/29/19 07:40 Urine Glucose (UA) Negative (NEGATIVE) 06/29/19 07:40 Urine Ketones Negative (NEGATIVE) 06/29/19 07:40 Urine Blood Negative (NEGATIVE) 06/29/19 07:40 Urine Nitrite Negative (NEGATIVE) 06/29/19 07:40 Urine Bilirubin Negative (NEGATIVE) 06/29/19 07:40 Urine Urobilinogen 1.0 mg/dL (0.2-1.0) 06/29/19 07:40 Ur Leukocyte Esterase 1+ (NEGATIVE) H 06/29/19 07:40 Urine WBC (Auto) 8 /hpf (0-5) 06/29/19 07:40 Urine RBC (Auto) 1 /hpf (0-4) 06/29/19 07:40 Urine Casts (Auto) 103 /lpf (0-8) 06/29/19 07:40 U Pathogenic Cast Auto None seen /lpf (NEGATIVE) 06/29/19 07:40 U Epithel Cells (Auto) 11.1 /HPF (0-5/HPF) 06/29/19 07:40 U Sm Round Cell (Auto) None seen 06/29/19 07:40 Urine Bacteria (Auto) 8.6 /hpf (NEGATIVE) 06/29/19 07:40 RPR Titer Nonreactive (NONREACTIVE) 06/27/19 07:00 - Treatment Hospital Course: Detox Protocol Followed, Detoxed Safely, Responded well, Discharged Condition Good Patient has Accepted a Rehab Referral to: [facility] - Medication Discharge Medications: Ambulatory Orders NK [No Known Home Medication] 03/20/19 - Diagnosis (1) Alcohol dependence with uncomplicated withdrawal Current Visit: Yes Status: Acute (2) Cannabis dependence Current Visit: Yes Status: Chronic (3) Hepatitis C Current Visit: Yes Status: Chronic Qualifiers: Viral hepatitis chronicity: chronic Hepatic coma status: without hepatic coma Qualified Code(s): B18.2 - Chronic viral hepatitis C (4) Nicotine dependence Current Visit: Yes Status: Chronic Qualifiers: Nicotine product type: cigarettes Substance use status: uncomplicated Qualified Code(s): F17.210 - Nicotine dependence, cigarettes, uncomplicated (5) Fracture of right elbow Current Visit: No Status: Acute (6) Alcohol related seizure Current Visit: No Status: Suspected - AMA Did Patient Leave Against Medical Advice: No
[2019-07-01] MEDS ORDERED: chlordiazePOXIDE HCL 10 MG CAPSULE PO ONE (05:00)
== END 2019-06-30 15:15 | disposition home or self-care (01) | DRG 775 ==
LOC: YASAS 11:47 → Y3N 18:25
PROVIDERS: ADMIT Surgery; ATTEND Surgery
PROC: HZ2ZZZZ Detoxification Services for Substance Abuse Treatment (ICD-10-PCS; principal; 2019-06-26)
DX: F10.20 Alcohol dependence, uncomplicated (principal); F12.20 Cannabis dependence, uncomplicated; F17.210 Nicotine dependence, cigarettes, uncomplicated; F31.9 Bipolar disorder, unspecified; F19.24 Other psychoactive substance dependence with psychoactive substance-induced mood disorder; I10 Essential (primary) hypertension; B18.2 Chronic viral hepatitis C; N39.0 Urinary tract infection, site not specified; R31.9 Hematuria, unspecified; M21.921 Unspecified acquired deformity of right upper arm; Z86.69 Personal history of other diseases of the nervous system and sense organs; Z99.89 Dependence on other enabling machines and devices; Z59.0 Homelessness
CPT/HCPCS: 36415; 80053; 81003; 85027; 86593

== ENCOUNTER 2019-07-26 12:33 | Inpatient (IN) | payer OTHER ==
[2019-07-26 12:59] VITALS: BMI 24.0
--- NOTE | 2019-07-26 17:46 | HP ---
CIWA Score Nausea/Vomitin Muscle Tremors: 2 Anxiety: 2 Agitation: 2 Paroxysmal Sweats: 2 Orientation: 0-Oriented Tacttile Disturbances: 2-Mild Itch/Numbness/Burn Auditory Disturbances: 0-None Visual Disturbances: 0-None Headache: 2-Mild CIWA-Ar Total Score: 14 - Admission Criteria OASAS Guidelines: Admission for Medically Managed Detox: Requires at least one of the followin. CIWA greater than 12 2. Seizures within the past 24 hours 3. Delirium tremens within the past 24 hours 4. Hallucinations within the past 24 hours 5. Acute intervention needed for co occurring medical disorder 6. Acute intervention needed for co occurring psychiatric disorder 7. Severe withdrawal that cannot be handled at a lower level of care (continued vomiting, continued diarrhea, abnormal vital signs) requiring intravenous medication and/or fluids 8. Patient presents the following: CIWA greater than 12 Admission Criteria Met: Admission criteria met Admitting History and Physical - Admission History Source: Patient Limitations to Obtaining History: No Limitations - Smoking History Smoking history: Current every day smoker Have you smoked in the past 12 months: Yes Aproximately how many cigarettes per day: 20 - Alcohol/Substance Use Hx Alcohol Use: Yes Admission [facility] Chief Complaint: Alcohol withdrawal symptoms Allergies/Adverse Reactions: Allergies Allergy/AdvReac Type Severity Reaction Status Date / Time No Known Allergies Allergy Verified 07/26/19 12:51 History of Present Illness: Patient is a 44 year old male who presents for detox from alcohol. His last admission was 06/26-06/30/19. Exam Limitations: No Limitations - Ebola screening Have you traveled outside of the country in the last 21 days: No Have you had contact with anyone from an Ebola affected area: No Have you been sick,other than usual withdrawal symptoms: No Do you have a fever: No - Review of Systems Constitutional: Chills, Diaphoresis, Changes in sleep, Weakness EENT: reports: Blurred Vision, Nose Congestion Respiratory: reports: SOB with Exertion Cardiac: reports: No Symptoms Reported GI: reports: Nausea, Poor Appetite, Poor Fluid Intake, Abdominal cramping : reports: No Symptoms Reported Musculoskeletal: reports: Back Pain, Joint Pain, Muscle Pain, Muscle Weakness Integumentary: reports: Flushing Neuro: reports: Headache, Numbness, Tremors Endocrine: reports: No Symptoms Reported Hematology: reports: No Symptoms Reported Psychiatric: reports: Anxious Other Systems: Reviewed and Negative Patient History - Patient Medical History Hx Anemia: No Hx Asthma: No Hx Chronic Obstructive Pulmonary Disease (COPD): No Hx Cancer: No Hx Cardiac Disorders: No Hx Congestive Heart Failure: No Hx Hypertension: Yes Hx Hypercholesterolemia: No Hx Pacemaker: No HX Cerebrovascular Accident: No Hx Seizures: Yes (last 2015) Hx Dementia: No Hx Diabetes: No Hx Gastrointestinal Disorders: No Hx Liver Disease: No Hx Genitourinary Disorders: No Hx Sexually Transmitted Disorders: No Hx Renal Disease (ESRD): No Hx Thyroid Disease: No Hx Human Immunodeficiency Virus (HIV): No Hx Hepatitis C: Yes Hx Depression: No Hx Suicide Attempt: No Hx Bipolar Disorder: Yes Hx Schizophrenia: No - Patient Surgical History Past Surgical History: Yes Hx Neurologic Surgery: No Hx Cataract Extraction: No Hx Cardiac Surgery: No Hx Lung Surgery: No Hx Breast Surgery: No Hx Breast Biopsy: No Hx Abdominal Surgery: No Hx Appendectomy: No Hx Cholecystectomy: No Hx Genitourinary Surgery: No Hx Section: No Hx Orthopedic Surgery: Yes (right knee) Hx Hysterectomy: No Other Surgical History: fx of right elbow 10/26 Anesthesia Reaction: No - PPD History Previous Implant?: Yes Documented Results: Negative w/proof Implanted On Prior R Admission?: Yes Date: 03/22/19 PPD to be Administered?: No - Smoking Cessation Smoking history: Current every day smoker Have you smoked in the past 12 months: Yes Aproximately how many cigarettes per day: 20 Cigars Per Day: 0 Hx Chewing Tobacco Use: No Initiated information on smoking cessation: Yes 'Breaking Loose' booklet given: 07/26/19 - Substances abused Alcohol Substance route: Oral Frequency: Daily Amount used: 1 liters of vodka,whiskey or 20 beers Age of first use: 12 Date of last use: 07/25/19 Marijuana/Hashish Substance route: Smoking Frequency: 1-2 times per week Amount used: 1 joint/day Age of first use: 12 Date of last use: 07/25/19 Admission Physical Exam BHS - Vital Signs Vital Signs: Vital Signs - 24 hr 07/26/19 12:51 Temperature 97.0 F L Pulse Rate 73 Respiratory 20 Rate Blood Pressure 153/83 - Physical General Appearance: Yes: Other (moderate foul odor) HEENTM: Yes: Normocephalic, Normal Voice, MISAEL Respiratory: Yes: Chest Non-Tender, Lungs Clear, Normal Breath Sounds Neck: Yes: No masses,lesions,Nodules, Supple Breast: Yes: Breast Exam Deferred Cardiology: Yes: Regular Rhythm, Regular Rate, S1, S2 Abdominal: Yes: Normal Bowel Sounds, Soft Genitourinary: Yes: Within Normal Limits Back: Yes: Normal Inspection Musculoskeletal: Yes: full range of Motion Extremities: Yes: Normal Inspection, Tremors, Other (right knee surgical scar) 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: 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: 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, Fully Oriented, Alert, Normal Mood/ Affect, Normal Response Integumentary: Yes: [place] Lymphatic: Yes: Within Normal Limits - Diagnostic (1) Alcohol dependence with uncomplicated withdrawal Current Visit: Yes Status: Acute (2) Hepatitis C Current Visit: No Status: Chronic Qualifiers: Viral hepatitis chronicity: chronic Hepatic coma status: without hepatic coma Qualified Code(s): B18.2 - Chronic viral hepatitis C (3) Nicotine dependence Current Visit: Yes Status: Acute Qualifiers: Nicotine product type: cigarettes Substance use status: uncomplicated Qualified Code(s): F17.210 - Nicotine dependence, cigarettes, uncomplicated (4) Substance induced mood disorder Current Visit: Yes Status: Acute Cleared for Admission S - Detox or Rehab [facility] Level of Care: Medically Managed Detox Regimen/Protocol: Librium Claeared for Rehab Admission: No Breathalyzer - Breathalyzer Breathalyzer: 0.060 Urine Drug Screen - Test Device Lot number: [id number] Expiration date: 03/07/21 - Control Is test valid?: Yes - Results Drug screen NEGATIVE: No Urine drug screen results: THC-Marijuana, BZO-Benzodiazepines Inpatient Rehab Admission - Rehab Decision to Admit Inpatient rehab admission?: No
[2019-07-26] MEDS ORDERED: IBUPROFEN 400 MG TABLET (FP) PO PRN (18:03)
[2019-07-26] MEDS ORDERED: MAG HYDROX/AL HYDROX/SIMETH 30 ML UNIT-DOSE CUP PO PRN (18:03)
[2019-07-26] MEDS ORDERED: NICOTINE POLACRILEX 2 MG GUM BUC PRN (18:03)
[2019-07-26] MEDS ORDERED: MAGNESIUM HYDROX 2400MG/30ML ORAL SUSPENSION 30 ML CUP PO PRN (18:03)
[2019-07-26] MEDS ORDERED: MAGNESIUM CITRATE 300 ML BOTTLE PO PRN (18:03)
[2019-07-26] MEDS ORDERED: ONDANSETRON *ODT* 4 MG TABLET SL PRN (18:03)
[2019-07-26] MEDS ORDERED: ACETAMINOPHEN 325 MG TABLET (FP) PO PRN ×2 (18:03)
[2019-07-26] MEDS ORDERED: hydrOXYzine PAMOATE 50 MG CAPSULE (FP) PO PRN (18:03)
[2019-07-26] MEDS ORDERED: BISMUTH SUBSALICYLATE 524 MG/30 ML UD PO PRN (18:03)
[2019-07-26] MEDS ORDERED: MENTHOL/PHENOL 1 EACH UD MM PRN (18:03)
[2019-07-26] MEDS: NICOTINE 14 MG/24 HOURS TOPICAL PATCH TD SCH (19:07)
[2019-07-26] MEDS: chlordiazePOXIDE HCL 10 MG CAPSULE PO PRN (19:09)
[2019-07-26] MEDS: METHOCARBAMOL 500 MG TABLET PO PRN (22:35)
[2019-07-26] MEDS: THIAMINE HCL 100 MG TABLET (FP) PO SCH (22:35)
[2019-07-26] MEDS: chlordiazePOXIDE HCL 25 MG CAPSULE PO SCH (22:35)
[2019-07-26] MEDS: MELATONIN 5 MG TABLETS PO PRN (22:36)
[2019-07-27] MEDS: chlordiazePOXIDE HCL 25 MG CAPSULE PO SCH ×3 (06:20→22:41)
[2019-07-27] MEDS: NICOTINE 14 MG/24 HOURS TOPICAL PATCH TD SCH (10:44)
[2019-07-27] MEDS: PRENATAL VITAMINS W/ FOLIC ACID TABLET (FP) PO SCH (10:45)
[2019-07-27] MEDS: chlordiazePOXIDE HCL 10 MG CAPSULE PO PRN (10:46)
[2019-07-27] MEDS ORDERED: cloNIDine HCL 0.1 MG TABLET PO PRN (13:02)
--- NOTE | 2019-07-27 13:02 | PN ---
[facility] CIWA - CIWA Score Nausea/Vomitin-Mild Nausea/No Vomiting Muscle Tremors: 3 Anxiety: 3 Agitation: 2 Paroxysmal Sweats: 1-Minimal Palms Moist Orientation: 0-Oriented Tacttile Disturbances: 1-Very Mild Itch/Numbness Auditory Disturbances: 1-Very Mild Visual Disturbances: 0-None Headache: 1-Very Mild CIWA-Ar Total Score: 13 BHS Progress Note (SOAP) Subjective: doing well with librium detox regimen ate breakfast tolerate food and fluid well Objective: 07/27/19 13:01 Vital Signs Temperature 97.7 F 07/27/19 09:28 Pulse Rate 116 H 07/27/19 09:28 Respiratory Rate 20 07/27/19 09:28 Blood Pressure 144/98 07/27/19 09:28 O2 Sat by Pulse Oximetry (%) 07/27/19 13:04 lab see 06/30/19 report no repeat necessary Assessment: 07/27/19 13:04 alcohol withdrawal sx Plan: continue librium detox regimen
[2019-07-27] MEDS: THIAMINE HCL 100 MG TABLET (FP) PO SCH (22:41)
[2019-07-27] MEDS: MELATONIN 5 MG TABLETS PO PRN (22:42)
[2019-07-27] MEDS: METHOCARBAMOL 500 MG TABLET PO PRN (22:42)
[2019-07-28] MEDS: chlordiazePOXIDE 5 MG CAPSULE PO SCH ×3 (05:31→21:42)
[2019-07-28] MEDS: NICOTINE 14 MG/24 HOURS TOPICAL PATCH TD SCH (10:46)
[2019-07-28] MEDS: PRENATAL VITAMINS W/ FOLIC ACID TABLET (FP) PO SCH (10:46)
--- NOTE | 2019-07-28 13:16 | PN ---
[facility] CIWA - CIWA Score Nausea/Vomitin-Mild Nausea/No Vomiting Muscle Tremors: 2 Anxiety: 2 Agitation: 2 Paroxysmal Sweats: 1-Minimal Palms Moist Orientation: 0-Oriented Tacttile Disturbances: 0-None Auditory Disturbances: 0-None Visual Disturbances: 0-None Headache: 0-None Present CIWA-Ar Total Score: 8 BHS Progress Note (SOAP) Subjective: doing well with librium detox regimen less tremor ambulating on hallway mild anxiety tolerate food and fluid well Objective: 07/28/19 13:16 Vital Signs Temperature 96.7 F L 07/28/19 09:15 Pulse Rate 105 H 07/28/19 09:15 Respiratory Rate 18 07/28/19 09:15 Blood Pressure 126/84 07/28/19 09:15 O2 Sat by Pulse Oximetry (%) lab see lab result Assessment: 07/28/19 13:20 alcohol withdrawal sx Plan: continue librium detox regimen
[2019-07-28] MEDS: MELATONIN 5 MG TABLETS PO PRN (21:40)
[2019-07-28] MEDS: THIAMINE HCL 100 MG TABLET (FP) PO SCH (21:40)
[2019-07-29] MEDS ORDERED: chlordiazePOXIDE HCL 10 MG CAPSULE PO PRN
[2019-07-29] MEDS: chlordiazePOXIDE HCL 10 MG CAPSULE PO SCH ×3 (05:32→22:04)
--- NOTE | 2019-07-29 09:35 | PN ---
[facility] CIWA - CIWA Score Nausea/Vomitin-Mild Nausea/No Vomiting Muscle Tremors: 1-None Visible, but [place] Anxiety: 1-Mildly Anxious Agitation: 0-Normal Activity Paroxysmal Sweats: 1-Minimal Palms Moist Orientation: 0-Oriented Tacttile Disturbances: 0-None Auditory Disturbances: 0-None Visual Disturbances: 0-None Headache: 0-None Present CIWA-Ar Total Score: 4 BHS Progress Note (SOAP) Subjective: doing well with librium detox regimen ambulating on hallway attend therapeutic group discuss aftercare with staff Objective: 07/29/19 14:04 Vital Signs Temperature 96.1 F L 07/29/19 13:54 Pulse Rate 80 07/29/19 13:54 Respiratory Rate 16 07/29/19 13:54 Blood Pressure 127/86 07/29/19 13:54 O2 Sat by Pulse Oximetry (%) lab see 06/27/19 Assessment: 07/29/19 14:04 alcohol withdrawal sx Plan: continue librium detox regimen
[2019-07-29] MEDS: NICOTINE 14 MG/24 HOURS TOPICAL PATCH TD SCH (09:41)
[2019-07-29] MEDS: PRENATAL VITAMINS W/ FOLIC ACID TABLET (FP) PO SCH (09:42)
[2019-07-29] MEDS: THIAMINE HCL 100 MG TABLET (FP) PO SCH (22:04)
[2019-07-29] MEDS: MELATONIN 5 MG TABLETS PO PRN (22:05)
[2019-07-30] MEDS ORDERED: chlordiazePOXIDE HCL 10 MG CAPSULE PO ONE (05:00)
[2019-07-30 06:18] VITALS: BP 117/74; PULSE 55; TEMP 98.7
--- NOTE | 2019-07-30 09:06 | DS ---
[facility] Detox Discharge Summary Admission Date: 07/26/19 Discharge Date: 07/30/19 - History Present History: Alcohol Dependence Additional Comments: 44 years old male admitted on 07/26/19 for alcohol withdrawal sx management did well with librium detox regimen no complication through out the detox stay alert oriented x 3 cardiac S1S2 regular rate rhythm respiratory clear lung bilaterally on auscultation abdomen soft no rebound tenderness - Physical Exam Results Vital Signs: Vital Signs Temperature 98.7 F 07/30/19 06:17 Pulse Rate 55 L 07/30/19 06:17 Respiratory Rate 16 07/30/19 06:17 Blood Pressure 117/74 07/30/19 06:17 O2 Sat by Pulse Oximetry (%) Pertinent Admission Physical Exam Findings: alcohol withdrawal sx see 06/27/19 lab report - Treatment Hospital Course: Detox Protocol Followed, Detoxed Safely, Responded well, Discharged Condition Good, Rehab Referral Accepted Patient has Accepted a Rehab Referral to: [facility] - Medication Discharge Medications: Ambulatory Orders NK [No Known Home Medication] 03/20/19 - Diagnosis (1) Alcohol dependence with uncomplicated withdrawal Current Visit: Yes Status: Acute (2) Nicotine dependence Current Visit: Yes Status: Acute Qualifiers: Nicotine product type: cigarettes Substance use status: in withdrawal Qualified Code(s): F17.213 - Nicotine dependence, cigarettes, with withdrawal (3) Substance induced mood disorder Current Visit: Yes Status: Suspected (4) Use of cane as ambulatory aid Current Visit: Yes Status: Chronic (5) Hepatitis C Current Visit: Yes Status: Chronic Qualifiers: Viral hepatitis chronicity: chronic Hepatic coma status: without hepatic coma Qualified Code(s): B18.2 - Chronic viral hepatitis C - AMA Did Patient Leave Against Medical Advice: No CIWA Score - CIWA Score Nausea/Vomitin-No Nausea/No Vomiting Muscle Tremors: 1-None Visible, but [place] Anxiety: 0-No Anxiety, at Ease Agitation: 0-Normal Activity Paroxysmal Sweats: No Perspiration Orientation: 0-Oriented Tacttile Disturbances: 0-None Auditory Disturbances: 0-None Visual Disturbances: 0-None Headache: 0-None Present CIWA-Ar Total Score: 1
[2019-07-30] MEDS: NICOTINE 14 MG/24 HOURS TOPICAL PATCH TD SCH (09:43)
[2019-07-30] MEDS: PRENATAL VITAMINS W/ FOLIC ACID TABLET (FP) PO SCH (09:43)
== END 2019-07-30 08:44 | disposition home or self-care (01) | DRG 775 ==
LOC: YASAS 12:33 → Y3N 18:25
PROVIDERS: ADMIT Allergy & Immunology; ATTEND Allergy & Immunology
PROC: HZ2ZZZZ Detoxification Services for Substance Abuse Treatment (ICD-10-PCS; principal; 2019-07-26)
DX: F10.230 Alcohol dependence with withdrawal, uncomplicated (principal); F17.210 Nicotine dependence, cigarettes, uncomplicated; F19.24 Other psychoactive substance dependence with psychoactive substance-induced mood disorder; I10 Essential (primary) hypertension; B18.2 Chronic viral hepatitis C; R26.2 Difficulty in walking, not elsewhere classified; Z99.89 Dependence on other enabling machines and devices; Z86.69 Personal history of other diseases of the nervous system and sense organs; Z59.0 Homelessness

== ENCOUNTER 2021-09-22 12:53 | Inpatient (IN) | payer OTHER ==
[2021-09-22] MEDS ORDERED: ONDANSETRON *ODT* 4 MG TABLET SL PRN (14:06)
[2021-09-22] MEDS ORDERED: LORazepam 1 MG TABLET PO PRN (14:06)
[2021-09-22] MEDS ORDERED: MAGNESIUM CITRATE 300 ML BOTTLE PO PRN (14:06)
[2021-09-22] MEDS ORDERED: MAG HYDROX/AL HYDROX/SIMETH 30 ML UNIT-DOSE CUP PO PRN (14:06)
[2021-09-22] MEDS ORDERED: BISMUTH SUBSALICYLATE 262 MG/15 ML BTL PO PRN (14:06)
[2021-09-22] MEDS ORDERED: ACETAMINOPHEN 325 MG TABLET (FP) PO PRN ×2 (14:06)
[2021-09-22] MEDS ORDERED: NICOTINE 10 MG CARTRIDGE (INHALER) IH PRN (14:06)
[2021-09-22] MEDS ORDERED: MAGNESIUM HYDROX 2400MG/30ML ORAL SUSPENSION 30 ML CUP PO PRN (14:06)
[2021-09-22] MEDS ORDERED: MENTHOL/PHENOL 1 EACH UD MM PRN (14:06)
[2021-09-22 15:17] VITALS: BMI 22.7
[2021-09-22] MEDS ORDERED: LORazepam 1 MG TABLET ONE (15:35)
[2021-09-22] MEDS: IBUPROFEN 400 MG TABLET (FP) PO PRN (16:02)
[2021-09-22] MEDS: METHOCARBAMOL 500 MG TABLET PO PRN (16:02)
[2021-09-22] MEDS: LORazepam 2 MG TABLET PO SCH ×2 (17:40→22:14)
[2021-09-22] MEDS: hydrOXYzine PAMOATE 25 MG CAPSULE (FP) PO SCH ×2 (18:10→22:15)
[2021-09-22] MEDS: THIAMINE HCL 100 MG TABLET (FP) PO SCH (22:14)
[2021-09-22] MEDS: MELATONIN 5 MG TABLETS PO SCH (22:16)
[2021-09-23] MEDS: hydrOXYzine PAMOATE 25 MG CAPSULE (FP) PO SCH ×5 (05:22→22:29)
[2021-09-23] MEDS: LORazepam 2 MG TABLET PO SCH ×4 (05:22→22:29)
[2021-09-23 10:33] LABS: HEMOGLOBIN 8.1 GM/dL (11.7-16.9); MCH 27.6 pg (25.7-33.7); MCHC 33.6 g/dl (32.0-35.9); MEAN CELL VOLUME 82.3 fl (80-96); MEAN PLT VOLUME 7.2 fl (7.5-11.1); PLATELET COUNT 111 10^3/uL (134-434); RBC 2.92 M/mm3 (4.00-5.60); WHITE BLOOD COUNT 2.7 K/mm3 (4.0-10.0)
[2021-09-23 10:37] LABS: ALBUMIN 2.1 g/dl (3.4-5.0)
[2021-09-23 10:38] LABS: BLOOD UREA NITROGEN 4.7 mg/dL (7-18)
[2021-09-23 10:40] LABS: CREATININE 0.6 mg/dL (0.55-1.3)
[2021-09-23 10:42] LABS: BILIRUBIN,TOTAL 2.6 mg/dL (0.2-1); TOT PROT 7.2 g/dl (6.4-8.2)
[2021-09-23] MEDS: METHOCARBAMOL 500 MG TABLET PO PRN (10:54)
[2021-09-23] MEDS: PRENATAL VITAMINS W/ FOLIC ACID TABLET (FP) PO SCH (10:54)
[2021-09-23] MEDS ORDERED: cloNIDine HCL 0.1 MG TABLET PO PRN (12:37)
[2021-09-23 12:41] LABS: HIV INTERPRETATION NEGATIVE (NEGATIVE)
[2021-09-23] MEDS: MELATONIN 5 MG TABLETS PO SCH (22:29)
[2021-09-23] MEDS: THIAMINE HCL 100 MG TABLET (FP) PO SCH (22:29)
[2021-09-24] MEDS: LORazepam 1 MG TABLET PO SCH ×4 (06:11→22:42)
[2021-09-24] MEDS: hydrOXYzine PAMOATE 25 MG CAPSULE (FP) PO SCH ×5 (06:11→22:42)
[2021-09-24] MEDS: IBUPROFEN 400 MG TABLET (FP) PO PRN (06:29)
[2021-09-24] MEDS: METHOCARBAMOL 500 MG TABLET PO PRN ×2 (10:57→18:03)
[2021-09-24] MEDS: PRENATAL VITAMINS W/ FOLIC ACID TABLET (FP) PO SCH (10:57)
[2021-09-24] MEDS: MELATONIN 5 MG TABLETS PO SCH (22:41)
[2021-09-24] MEDS: THIAMINE HCL 100 MG TABLET (FP) PO SCH (22:42)
[2021-09-25] MEDS ORDERED: LORazepam 0.5 MG TABLET PO PRN
[2021-09-25] MEDS: METHOCARBAMOL 500 MG TABLET PO PRN (07:06)
[2021-09-25] MEDS: hydrOXYzine PAMOATE 25 MG CAPSULE (FP) PO SCH ×5 (07:06→22:44)
[2021-09-25] MEDS: LORazepam 0.5 MG TABLET PO SCH ×4 (07:06→22:43)
[2021-09-25] MEDS: IBUPROFEN 400 MG TABLET (FP) PO PRN (07:14)
[2021-09-25] MEDS: PRENATAL VITAMINS W/ FOLIC ACID TABLET (FP) PO SCH (11:11)
[2021-09-25] MEDS: MELATONIN 5 MG TABLETS PO SCH (22:44)
[2021-09-25] MEDS: THIAMINE HCL 100 MG TABLET (FP) PO SCH (22:44)
[2021-09-26] MEDS ORDERED: LORazepam 0.5 MG TABLET PO ONE (05:00)
[2021-09-26] MEDS: hydrOXYzine PAMOATE 25 MG CAPSULE (FP) PO SCH ×5 (06:02→22:59)
[2021-09-26 11:01] LABS: HEMATOCRIT 27.4 % (35.4-49); HEMOGLOBIN 9.1 GM/dL (11.7-16.9); MCH 27.8 pg (25.7-33.7); MCHC 33.4 g/dl (32.0-35.9); MEAN CELL VOLUME 83.1 fl (80-96); MEAN PLT VOLUME 7.6 fl (7.5-11.1); PLATELET COUNT 166 10^3/uL (134-434); RBC 3.29 M/mm3 (4.00-5.60); RDW 16.6 % (11.9-15.9)
[2021-09-26] MEDS: IBUPROFEN 400 MG TABLET (FP) PO PRN (11:23)
[2021-09-26] MEDS: PRENATAL VITAMINS W/ FOLIC ACID TABLET (FP) PO SCH (11:25)
[2021-09-26 13:11] LABS: ANISOCYTOSIS 0; MACROCYTOSIS 0; PLATELET ESTIMATE DECREASED
[2021-09-26] MEDS ORDERED: LACTULOSE 20 GM/30 ML UDC (FOR ORAL USE ONLY) PO ONE (14:09)
[2021-09-26] MEDS ORDERED: DOCUSATE SODIUM 100 MG CAPSULE (FP) PO PRN (14:20)
[2021-09-26] MEDS: LACTULOSE 20 GM/30 ML UDC (FOR ORAL USE ONLY) PO SCH ×2 (20:08→22:58)
[2021-09-26] MEDS: FERROUS SO4 325 MG TABLET (FP) PO SCH (20:08)
[2021-09-26] MEDS: THIAMINE HCL 100 MG TABLET (FP) PO SCH (22:59)
[2021-09-26] MEDS: MELATONIN 5 MG TABLETS PO SCH (22:59)
[2021-09-27] MEDS: hydrOXYzine PAMOATE 25 MG CAPSULE (FP) PO SCH ×5 (06:06→21:39)
[2021-09-27] MEDS: FERROUS SO4 325 MG TABLET (FP) PO SCH ×3 (07:21→17:40)
[2021-09-27] MEDS: LACTULOSE 20 GM/30 ML UDC (FOR ORAL USE ONLY) PO SCH ×4 (10:08→21:38)
[2021-09-27] MEDS: MULTIVITAMINS (DAILY MVI) TABLET (FP) PO SCH (10:10)
[2021-09-27] MEDS: MELATONIN 5 MG TABLETS PO SCH (21:00)
[2021-09-27] MEDS: THIAMINE HCL 100 MG TABLET (FP) PO SCH (21:38)
[2021-09-27] MEDS: guaiFENesin 600 MG TABLET.ER (FP) PO SCH (21:41)
[2021-09-28] MEDS: hydrOXYzine PAMOATE 25 MG CAPSULE (FP) PO SCH ×3 (06:39→15:00)
[2021-09-28] MEDS: FERROUS SO4 325 MG TABLET (FP) PO SCH ×3 (07:09→17:30)
[2021-09-28] MEDS: MULTIVITAMINS (DAILY MVI) TABLET (FP) PO SCH (10:56)
[2021-09-28] MEDS: guaiFENesin 600 MG TABLET.ER (FP) PO SCH ×2 (10:56→22:44)
[2021-09-28] MEDS: LACTULOSE 20 GM/30 ML UDC (FOR ORAL USE ONLY) PO SCH ×4 (10:56→22:44)
[2021-09-28 12:44] LABS: ALBUMIN 2.3 g/dl (3.4-5.0)
[2021-09-28 12:46] LABS: BILIRUBIN,DIRECT 0.7 mg/dL (0.0-0.2)
[2021-09-28 12:48] LABS: BILIRUBIN,TOTAL 1.2 mg/dL (0.2-1); TOT PROT 7.8 g/dl (6.4-8.2)
[2021-09-28] MEDS: MELATONIN 5 MG TABLETS PO SCH (22:44)
[2021-09-28] MEDS: THIAMINE HCL 100 MG TABLET (FP) PO SCH (22:44)
[2021-09-28] MEDS: IBUPROFEN 400 MG TABLET (FP) PO PRN (22:45)
[2021-09-29] MEDS: FERROUS SO4 325 MG TABLET (FP) PO SCH ×3 (08:05→17:30)
[2021-09-29] MEDS: MULTIVITAMINS (DAILY MVI) TABLET (FP) PO SCH (10:52)
[2021-09-29] MEDS: guaiFENesin 600 MG TABLET.ER (FP) PO SCH ×2 (10:52→22:54)
[2021-09-29] MEDS: LACTULOSE 20 GM/30 ML UDC (FOR ORAL USE ONLY) PO SCH ×4 (10:53→22:54)
[2021-09-29] MEDS: THIAMINE HCL 100 MG TABLET (FP) PO SCH (22:54)
[2021-09-29] MEDS: MELATONIN 5 MG TABLETS PO SCH (22:54)
[2021-09-30] MEDS: FERROUS SO4 325 MG TABLET (FP) PO SCH ×3 (07:44→21:55)
[2021-09-30] MEDS: LACTULOSE 20 GM/30 ML UDC (FOR ORAL USE ONLY) PO SCH ×3 (12:39→21:54)
[2021-09-30] MEDS: MULTIVITAMINS (DAILY MVI) TABLET (FP) PO SCH (12:39)
[2021-09-30] MEDS: guaiFENesin 600 MG TABLET.ER (FP) PO SCH (12:39)
[2021-10-01] MEDS: MELATONIN 5 MG TABLETS PO SCH ×2 (02:04→22:50)
[2021-10-01] MEDS: LACTULOSE 20 GM/30 ML UDC (FOR ORAL USE ONLY) PO SCH ×5 (02:04→22:50)
[2021-10-01] MEDS: THIAMINE HCL 100 MG TABLET (FP) PO SCH ×2 (02:05→22:50)
[2021-10-01] MEDS: guaiFENesin 600 MG TABLET.ER (FP) PO SCH ×3 (02:05→22:50)
[2021-10-01] MEDS: FERROUS SO4 325 MG TABLET (FP) PO SCH ×3 (11:06→18:10)
[2021-10-01] MEDS: MULTIVITAMINS (DAILY MVI) TABLET (FP) PO SCH (11:07)
[2021-10-02] MEDS: FERROUS SO4 325 MG TABLET (FP) PO SCH ×3 (07:08→17:48)
[2021-10-02] MEDS: MULTIVITAMINS (DAILY MVI) TABLET (FP) PO SCH (10:30)
[2021-10-02] MEDS: guaiFENesin 600 MG TABLET.ER (FP) PO SCH ×2 (10:35→23:56)
[2021-10-02] MEDS: LACTULOSE 20 GM/30 ML UDC (FOR ORAL USE ONLY) PO SCH ×4 (10:35→22:55)
[2021-10-02] MEDS: THIAMINE HCL 100 MG TABLET (FP) PO SCH (22:56)
[2021-10-02] MEDS: MELATONIN 5 MG TABLETS PO SCH (23:55)
[2021-10-03] MEDS: FERROUS SO4 325 MG TABLET (FP) PO SCH ×3 (07:38→21:14)
[2021-10-03] MEDS: MULTIVITAMINS (DAILY MVI) TABLET (FP) PO SCH (10:38)
[2021-10-03] MEDS: LACTULOSE 20 GM/30 ML UDC (FOR ORAL USE ONLY) PO SCH ×4 (10:38→22:14)
[2021-10-03] MEDS: guaiFENesin 600 MG TABLET.ER (FP) PO SCH (10:38)
[2021-10-03 10:49] LABS: ALBUMIN 2.4 g/dl (3.4-5.0)
[2021-10-03 10:52] LABS: BILIRUBIN,DIRECT 0.5 mg/dL (0.0-0.2)
[2021-10-03 10:54] LABS: BILIRUBIN,TOTAL 0.7 mg/dL (0.2-1); TOT PROT 7.4 g/dl (6.4-8.2)
[2021-10-03] MEDS: THIAMINE HCL 100 MG TABLET (FP) PO SCH (22:14)
[2021-10-03] MEDS: MELATONIN 5 MG TABLETS PO SCH (22:14)
[2021-10-04] MEDS: FERROUS SO4 325 MG TABLET (FP) PO SCH ×2 (07:16→12:07)
[2021-10-04 09:36] VITALS: BP 109/70; PULSE 86; TEMP 96.8
[2021-10-04] MEDS: MULTIVITAMINS (DAILY MVI) TABLET (FP) PO SCH (10:17)
[2021-10-04] MEDS: guaiFENesin 600 MG TABLET.ER (FP) PO SCH (10:18)
[2021-10-04] MEDS: LACTULOSE 20 GM/30 ML UDC (FOR ORAL USE ONLY) PO SCH (10:18)
== END 2021-10-04 12:30 | disposition other institution (70) | DRG 775 ==
LOC: YASAS 12:53 → Y6N 15:19
PROVIDERS: ADMIT Allergy & Immunology; ATTEND Allergy & Immunology
PROC: HZ2ZZZZ Detoxification Services for Substance Abuse Treatment (ICD-10-PCS; principal; 2021-09-22)
DX: F10.230 Alcohol dependence with withdrawal, uncomplicated (principal); F12.20 Cannabis dependence, uncomplicated; F17.210 Nicotine dependence, cigarettes, uncomplicated; I10 Essential (primary) hypertension; K74.60 Unspecified cirrhosis of liver; D50.9 Iron deficiency anemia, unspecified; B18.2 Chronic viral hepatitis C; E72.20 Disorder of urea cycle metabolism, unspecified; D72.819 Decreased white blood cell count, unspecified; R74.01 Elevation of levels of liver transaminase levels; D61.818 Other pancytopenia; R00.0 Tachycardia, unspecified; Z86.69 Personal history of other diseases of the nervous system and sense organs; Z20.822 Contact with and (suspected) exposure to COVID-19; Z56.0 Unemployment, unspecified; Z59.00 Homelessness unspecified
CPT/HCPCS: 36415; 80053; 80076; 82140; 82607; 82746; 83540; 83550; 85025; 85027; 86780; 87389; C9803; J0735; U0003; U0005

== ENCOUNTER 2021-10-04 12:58 | Inpatient (IN) | payer OTHER ==
[~2021-10-04 12:58] MED LIST: ACETAMINOPHEN 325 MG TABLET (FP) PO PRN; LOPERAMIDE HCL 2 MG CAPSULE PO PRN; MAG HYDROX/AL HYDROX/SIMETH 30 ML UNIT-DOSE CUP PO PRN; MAGNESIUM CITRATE 300 ML BOTTLE PO PRN; MAGNESIUM HYDROX 2400MG/30ML ORAL SUSPENSION 30 ML CUP PO PRN; NICOTINE 10 MG CARTRIDGE (INHALER) IH PRN; P-EPHED 60MG/TRIPROLIDI 2.5MG TABLET PO PRN; guaiFENesin 200 MG/10 ML 10 ML UNIT-DOSE CUPS PO PRN
[2021-10-04] MEDS: FERROUS SO4 325 MG TABLET (FP) PO SCH ×2 (13:10→17:47)
[2021-10-04] MEDS: LACTULOSE 20 GM/30 ML UDC (FOR ORAL USE ONLY) PO SCH ×3 (14:57→21:37)
[2021-10-04] MEDS: DOCUSATE SODIUM 100 MG CAPSULE (FP) PO SCH ×2 (14:57→21:37)
[2021-10-04] MEDS: hydrOXYzine PAMOATE 25 MG CAPSULE (FP) PO SCH ×3 (14:58→21:38)
[2021-10-04] MEDS: guaiFENesin 600 MG TABLET.ER (FP) PO SCH (21:37)
[2021-10-04] MEDS: MELATONIN 5 MG TABLETS PO SCH (21:37)
[2021-10-04] MEDS: THIAMINE HCL 100 MG TABLET (FP) PO SCH (21:37)
[2021-10-05] MEDS: DOCUSATE SODIUM 100 MG CAPSULE (FP) PO SCH ×3 (06:23→21:09)
[2021-10-05] MEDS: hydrOXYzine PAMOATE 25 MG CAPSULE (FP) PO SCH ×5 (06:23→22:23)
[2021-10-05] MEDS: FERROUS SO4 325 MG TABLET (FP) PO SCH ×3 (07:41→18:10)
[2021-10-05] MEDS ORDERED: PT OWN MED DRAWER 7, Y5N ONE ×2 (09:39→20:10)
[2021-10-05] MEDS: LACTULOSE 20 GM/30 ML UDC (FOR ORAL USE ONLY) PO SCH ×4 (10:36→21:09)
[2021-10-05] MEDS: NICOTINE 7 MG/24 HOURS TOPICAL PATCH TD SCH (10:36)
[2021-10-05] MEDS: guaiFENesin 600 MG TABLET.ER (FP) PO SCH ×2 (10:36→21:09)
[2021-10-05] MEDS: PRENATAL VITAMINS W/ FOLIC ACID TABLET (FP) PO SCH (10:36)
[2021-10-05] MEDS: THIAMINE HCL 100 MG TABLET (FP) PO SCH (21:09)
[2021-10-05] MEDS: MELATONIN 5 MG TABLETS PO SCH (21:10)
[2021-10-06] MEDS: DOCUSATE SODIUM 100 MG CAPSULE (FP) PO SCH ×3 (06:21→21:23)
[2021-10-06] MEDS: hydrOXYzine PAMOATE 25 MG CAPSULE (FP) PO SCH ×2 (06:21→09:04)
[2021-10-06] MEDS: FERROUS SO4 325 MG TABLET (FP) PO SCH ×3 (07:25→17:33)
[2021-10-06] MEDS: guaiFENesin 600 MG TABLET.ER (FP) PO SCH ×2 (09:03→23:15)
[2021-10-06] MEDS: NICOTINE 7 MG/24 HOURS TOPICAL PATCH TD SCH (09:03)
[2021-10-06] MEDS: PRENATAL VITAMINS W/ FOLIC ACID TABLET (FP) PO SCH (09:03)
[2021-10-06] MEDS: LACTULOSE 20 GM/30 ML UDC (FOR ORAL USE ONLY) PO SCH ×4 (09:03→21:23)
[2021-10-06] MEDS ORDERED: hydrOXYzine PAMOATE 25 MG CAPSULE (FP) PO PRN (09:54)
[2021-10-06] MEDS ORDERED: PT OWN MED DRAWER 7, Y5N ONE ×2 (20:05→20:19)
[2021-10-06] MEDS: MELATONIN 5 MG TABLETS PO SCH (21:23)
[2021-10-06] MEDS: THIAMINE HCL 100 MG TABLET (FP) PO SCH (21:23)
[2021-10-07] MEDS: DOCUSATE SODIUM 100 MG CAPSULE (FP) PO SCH ×2 (06:15→13:01)
[2021-10-07] MEDS: FERROUS SO4 325 MG TABLET (FP) PO SCH ×3 (07:10→18:02)
[2021-10-07] MEDS: LACTULOSE 20 GM/30 ML UDC (FOR ORAL USE ONLY) PO SCH ×2 (09:07→13:01)
[2021-10-07] MEDS: NICOTINE 7 MG/24 HOURS TOPICAL PATCH TD SCH (09:09)
[2021-10-07] MEDS: guaiFENesin 600 MG TABLET.ER (FP) PO SCH ×2 (10:00→21:12)
[2021-10-07] MEDS: MULTIVITAMINS (DAILY MVI) TABLET (FP) PO SCH (10:00)
[2021-10-07] MEDS ORDERED: PT OWN MED DRAWER 7, Y5N ONE ×2 (10:10→19:47)
[2021-10-07] MEDS ORDERED: ALBUTEROL SO4 HFA INHALER IH ONE (14:44)
[2021-10-07] MEDS ORDERED: ALBUTEROL SO4 HFA INHALER IH PRN (14:51)
[2021-10-07] MEDS: ALBUTEROL SO4 HFA INHALER IH PRN (15:04)
[2021-10-07] MEDS ORDERED: DOCUSATE SODIUM 100 MG CAPSULE (FP) PO PRN (15:11)
[2021-10-07] MEDS: predniSONE 5 MG TABLET (UD) PO SCH (16:00)
[2021-10-07 16:29] LABS: LIPASE 177 U/L (73-393)
[2021-10-07 16:31] LABS: AMYLASE 60 U/L (25-115)
[2021-10-07] MEDS: MELATONIN 5 MG TABLETS PO SCH (21:12)
[2021-10-07] MEDS: THIAMINE HCL 100 MG TABLET (FP) PO SCH (21:12)
[2021-10-08] MEDS ORDERED: PT OWN MED DRAWER 7, Y5N ONE ×3 (02:18→21:18)
[2021-10-08] MEDS: FERROUS SO4 325 MG TABLET (FP) PO SCH ×3 (07:23→17:31)
[2021-10-08] MEDS: LACTULOSE 20 GM/30 ML UDC (FOR ORAL USE ONLY) PO SCH (09:15)
[2021-10-08] MEDS: predniSONE 5 MG TABLET (UD) PO SCH (09:15)
[2021-10-08] MEDS: MULTIVITAMINS (DAILY MVI) TABLET (FP) PO SCH (09:15)
[2021-10-08] MEDS: NICOTINE 7 MG/24 HOURS TOPICAL PATCH TD SCH (09:16)
[2021-10-08] MEDS: guaiFENesin 600 MG TABLET.ER (FP) PO SCH ×2 (09:16→21:18)
[2021-10-08] MEDS: ALBUTEROL SO4 HFA INHALER IH PRN (21:14)
[2021-10-08] MEDS: THIAMINE HCL 100 MG TABLET (FP) PO SCH (21:15)
[2021-10-08] MEDS: MELATONIN 5 MG TABLETS PO SCH (21:16)
[2021-10-09] MEDS: FERROUS SO4 325 MG TABLET (FP) PO SCH ×3 (08:19→17:38)
[2021-10-09] MEDS: MULTIVITAMINS (DAILY MVI) TABLET (FP) PO SCH (09:36)
[2021-10-09] MEDS: NICOTINE 7 MG/24 HOURS TOPICAL PATCH TD SCH (09:36)
[2021-10-09] MEDS: guaiFENesin 600 MG TABLET.ER (FP) PO SCH ×2 (09:36→21:28)
[2021-10-09] MEDS: LACTULOSE 20 GM/30 ML UDC (FOR ORAL USE ONLY) PO SCH (09:36)
[2021-10-09] MEDS: predniSONE 5 MG TABLET (UD) PO SCH (09:36)
[2021-10-09] MEDS ORDERED: PT OWN MED DRAWER 7, Y5N ONE (19:26)
[2021-10-09] MEDS: MELATONIN 5 MG TABLETS PO SCH (21:28)
[2021-10-09] MEDS: THIAMINE HCL 100 MG TABLET (FP) PO SCH (21:28)
[2021-10-10] MEDS: FERROUS SO4 325 MG TABLET (FP) PO SCH ×3 (07:34→17:32)
[2021-10-10] MEDS: guaiFENesin 600 MG TABLET.ER (FP) PO SCH ×2 (09:37→21:13)
[2021-10-10] MEDS: LACTULOSE 20 GM/30 ML UDC (FOR ORAL USE ONLY) PO SCH (09:37)
[2021-10-10] MEDS: MULTIVITAMINS (DAILY MVI) TABLET (FP) PO SCH (09:38)
[2021-10-10] MEDS: NICOTINE 7 MG/24 HOURS TOPICAL PATCH TD SCH (09:38)
[2021-10-10] MEDS ORDERED: PT OWN MED DRAWER 7, Y5N ONE (20:01)
[2021-10-10] MEDS: THIAMINE HCL 100 MG TABLET (FP) PO SCH (21:13)
[2021-10-10] MEDS: MELATONIN 5 MG TABLETS PO SCH (21:13)
[2021-10-11] MEDS: FERROUS SO4 325 MG TABLET (FP) PO SCH ×3 (07:32→17:53)
[2021-10-11] MEDS: guaiFENesin 600 MG TABLET.ER (FP) PO SCH ×2 (09:14→21:21)
[2021-10-11] MEDS: MULTIVITAMINS (DAILY MVI) TABLET (FP) PO SCH (09:14)
[2021-10-11] MEDS: IBUPROFEN 400 MG TABLET (FP) PO PRN (09:15)
[2021-10-11] MEDS: NICOTINE 7 MG/24 HOURS TOPICAL PATCH TD SCH (09:15)
[2021-10-11] MEDS: LACTULOSE 20 GM/30 ML UDC (FOR ORAL USE ONLY) PO SCH (09:15)
[2021-10-11] MEDS ORDERED: PT OWN MED DRAWER 7, Y5N ONE (20:20)
[2021-10-11] MEDS: MELATONIN 5 MG TABLETS PO SCH (21:21)
[2021-10-11] MEDS: THIAMINE HCL 100 MG TABLET (FP) PO SCH (21:21)
[2021-10-12] MEDS ORDERED: PT OWN MED DRAWER 7, Y5N ONE ×2 (01:42→19:10)
[2021-10-12] MEDS: FERROUS SO4 325 MG TABLET (FP) PO SCH ×3 (07:16→17:29)
[2021-10-12] MEDS: LACTULOSE 20 GM/30 ML UDC (FOR ORAL USE ONLY) PO SCH (09:49)
[2021-10-12] MEDS: MULTIVITAMINS (DAILY MVI) TABLET (FP) PO SCH (09:50)
[2021-10-12] MEDS: guaiFENesin 600 MG TABLET.ER (FP) PO SCH ×2 (09:50→21:10)
[2021-10-12] MEDS: NICOTINE 7 MG/24 HOURS TOPICAL PATCH TD SCH (09:51)
[2021-10-12] MEDS ORDERED: COLLOIDAL OATMEAL 1 BAR EACH TP PRN (15:35)
[2021-10-12] MEDS: THIAMINE HCL 100 MG TABLET (FP) PO SCH (21:10)
[2021-10-12] MEDS: MELATONIN 5 MG TABLETS PO SCH (21:11)
[2021-10-13] MEDS ORDERED: PT OWN MED DRAWER 7, Y5N ONE ×3 (01:16→19:34)
[2021-10-13] MEDS: FERROUS SO4 325 MG TABLET (FP) PO SCH ×3 (07:24→17:45)
[2021-10-13] MEDS: guaiFENesin 600 MG TABLET.ER (FP) PO SCH ×2 (10:02→22:25)
[2021-10-13] MEDS: LACTULOSE 20 GM/30 ML UDC (FOR ORAL USE ONLY) PO SCH (10:02)
[2021-10-13] MEDS: MULTIVITAMINS (DAILY MVI) TABLET (FP) PO SCH (10:03)
[2021-10-13] MEDS: NICOTINE 7 MG/24 HOURS TOPICAL PATCH TD SCH (10:03)
[2021-10-13] MEDS: MELATONIN 5 MG TABLETS PO SCH (22:25)
[2021-10-13] MEDS: THIAMINE HCL 100 MG TABLET (FP) PO SCH (22:25)
[2021-10-14] MEDS ORDERED: PT OWN MED DRAWER 7, Y5N ONE ×4 (05:52→21:31)
[2021-10-14] MEDS: FERROUS SO4 325 MG TABLET (FP) PO SCH ×3 (07:10→17:32)
[2021-10-14] MEDS: NICOTINE 7 MG/24 HOURS TOPICAL PATCH TD SCH (10:12)
[2021-10-14] MEDS: MULTIVITAMINS (DAILY MVI) TABLET (FP) PO SCH (10:12)
[2021-10-14] MEDS: guaiFENesin 600 MG TABLET.ER (FP) PO SCH ×2 (10:12→21:31)
[2021-10-14] MEDS: LACTULOSE 20 GM/30 ML UDC (FOR ORAL USE ONLY) PO SCH (11:37)
[2021-10-14] MEDS: CLOTRIMAZOLE/BETAMET DIPROP TOPICAL CREAM 45 GM TUBE TP SCH ×2 (14:52→21:30)
[2021-10-14] MEDS: VITAMINS A AND D TOPICAL OINTMENT 60 GM TUBE TP SCH (20:05)
[2021-10-14] MEDS: THIAMINE HCL 100 MG TABLET (FP) PO SCH (21:29)
[2021-10-14] MEDS: MELATONIN 5 MG TABLETS PO SCH (21:29)
[2021-10-15] MEDS: VITAMINS A AND D TOPICAL OINTMENT 60 GM TUBE TP SCH ×5 (01:18→23:59)
[2021-10-15] MEDS ORDERED: PT OWN MED DRAWER 7, Y5N ONE (01:53)
[2021-10-15] MEDS: FERROUS SO4 325 MG TABLET (FP) PO SCH ×3 (07:00→16:38)
[2021-10-15] MEDS: LACTULOSE 20 GM/30 ML UDC (FOR ORAL USE ONLY) PO SCH (09:50)
[2021-10-15] MEDS: MULTIVITAMINS (DAILY MVI) TABLET (FP) PO SCH (09:51)
[2021-10-15] MEDS: NICOTINE 7 MG/24 HOURS TOPICAL PATCH TD SCH (09:51)
[2021-10-15] MEDS: guaiFENesin 600 MG TABLET.ER (FP) PO SCH ×2 (09:51→21:03)
[2021-10-15] MEDS: CLOTRIMAZOLE/BETAMET DIPROP TOPICAL CREAM 45 GM TUBE TP SCH ×2 (09:51→21:03)
[2021-10-15] MEDS: MELATONIN 5 MG TABLETS PO SCH (21:03)
[2021-10-15] MEDS: THIAMINE HCL 100 MG TABLET (FP) PO SCH (21:03)
[2021-10-16] MEDS ORDERED: PT OWN MED DRAWER 7, Y5N ONE ×3 (01:43→19:02)
[2021-10-16] MEDS: VITAMINS A AND D TOPICAL OINTMENT 60 GM TUBE TP SCH ×4 (06:21→23:17)
[2021-10-16] MEDS: FERROUS SO4 325 MG TABLET (FP) PO SCH ×3 (07:10→17:13)
[2021-10-16] MEDS: NICOTINE 7 MG/24 HOURS TOPICAL PATCH TD SCH (09:33)
[2021-10-16] MEDS: MULTIVITAMINS (DAILY MVI) TABLET (FP) PO SCH (09:33)
[2021-10-16] MEDS: guaiFENesin 600 MG TABLET.ER (FP) PO SCH ×2 (09:33→21:01)
[2021-10-16] MEDS: LACTULOSE 20 GM/30 ML UDC (FOR ORAL USE ONLY) PO SCH ×3 (09:33→21:01)
[2021-10-16] MEDS: CLOTRIMAZOLE/BETAMET DIPROP TOPICAL CREAM 45 GM TUBE TP SCH ×2 (09:55→21:02)
[2021-10-16] MEDS: IBUPROFEN 400 MG TABLET (FP) PO PRN (21:01)
[2021-10-16] MEDS: MELATONIN 5 MG TABLETS PO SCH (21:01)
[2021-10-16] MEDS: THIAMINE HCL 100 MG TABLET (FP) PO SCH (21:01)
[2021-10-17] MEDS: VITAMINS A AND D TOPICAL OINTMENT 60 GM TUBE TP SCH ×4 (06:19→18:15)
[2021-10-17] MEDS: LACTULOSE 20 GM/30 ML UDC (FOR ORAL USE ONLY) PO SCH ×3 (06:19→21:07)
[2021-10-17] MEDS: FERROUS SO4 325 MG TABLET (FP) PO SCH ×3 (07:26→21:06)
[2021-10-17] MEDS: MULTIVITAMINS (DAILY MVI) TABLET (FP) PO SCH (09:53)
[2021-10-17] MEDS: NICOTINE 7 MG/24 HOURS TOPICAL PATCH TD SCH (09:53)
[2021-10-17] MEDS ORDERED: PT OWN MED DRAWER 7, Y5N ONE (09:54)
[2021-10-17] MEDS: CLOTRIMAZOLE/BETAMET DIPROP TOPICAL CREAM 45 GM TUBE TP SCH ×2 (09:54→21:08)
[2021-10-17] MEDS: guaiFENesin 600 MG TABLET.ER (FP) PO SCH ×2 (09:55→21:06)
[2021-10-17] MEDS: THIAMINE HCL 100 MG TABLET (FP) PO SCH (21:06)
[2021-10-17] MEDS: MELATONIN 5 MG TABLETS PO SCH (21:07)
[2021-10-18] MEDS: VITAMINS A AND D TOPICAL OINTMENT 60 GM TUBE TP SCH ×2 (00:30→06:00)
[2021-10-18] MEDS: LACTULOSE 20 GM/30 ML UDC (FOR ORAL USE ONLY) PO SCH (06:00)
[2021-10-18 06:47] VITALS: BP 109/72; PULSE 85; TEMP 97.5
[2021-10-18] MEDS: FERROUS SO4 325 MG TABLET (FP) PO SCH (08:07)
[2021-10-18] MEDS: MULTIVITAMINS (DAILY MVI) TABLET (FP) PO SCH (09:59)
[2021-10-18] MEDS: guaiFENesin 600 MG TABLET.ER (FP) PO SCH (09:59)
[2021-10-18] MEDS: NICOTINE 7 MG/24 HOURS TOPICAL PATCH TD SCH (10:51)
[2021-10-18] MEDS: CLOTRIMAZOLE/BETAMET DIPROP TOPICAL CREAM 45 GM TUBE TP SCH (10:51)
== END 2021-10-18 10:09 | disposition home or self-care (01) | DRG 772 ==
LOC: YASAS 12:58 → Y3E 13:01 → Y3W 10-12 14:26
PROVIDERS: ADMIT Allergy & Immunology; ATTEND Allergy & Immunology
PROC: HZ42ZZZ Group Counseling for Substance Abuse Treatment, Cognitive-Behavioral (ICD-10-PCS; principal; 2021-10-04)
DX: F10.20 Alcohol dependence, uncomplicated (principal); F17.210 Nicotine dependence, cigarettes, uncomplicated; F31.9 Bipolar disorder, unspecified; K74.60 Unspecified cirrhosis of liver; L29.8 Other pruritus; R79.89 Other specified abnormal findings of blood chemistry; R21 Rash and other nonspecific skin eruption; Z56.0 Unemployment, unspecified; Z59.00 Homelessness unspecified
CPT/HCPCS: 36415; 71045-TC-FY; 82140; 82150; 83690; C9803-CS; U0003; U0005

== ENCOUNTER 2022-12-04 13:20 | Inpatient (IN) | payer OTHER ==
[2022-12-04 14:12] VITALS: BMI 17.7
[2022-12-04] MEDS ORDERED: hydrOXYzine PAMOATE 25 MG CAPSULE (FP) PO PRN (16:48)
[2022-12-04] MEDS ORDERED: MAG HYDROX/AL HYDROX/SIMETH 30 ML UNIT-DOSE CUP PO PRN (16:48)
[2022-12-04] MEDS ORDERED: DICYCLOMINE HCL 10 MG CAPSULE PO PRN (16:48)
[2022-12-04] MEDS ORDERED: LOPERAMIDE HCL 2 MG CAPSULE PO PRN (16:48)
[2022-12-04] MEDS ORDERED: IBUPROFEN 400 MG TABLET (FP) PO PRN (16:48)
[2022-12-04] MEDS ORDERED: BISMUTH SUBSALICYLATE 524 MG/30 ML PO PRN (16:48)
[2022-12-04] MEDS ORDERED: IBUPROFEN 600 MG TABLET (FP) PO PRN (16:48)
[2022-12-04] MEDS ORDERED: MAGNESIUM HYDROX 2400MG/30ML ORAL SUSPENSION 30 ML CUP PO PRN (16:48)
[2022-12-04] MEDS ORDERED: POLYETHYLENE GLYCOL (HEALTHYLAX) 3350 17 GM PACKET PO PRN (16:48)
[2022-12-04] MEDS ORDERED: METHOCARBAMOL 500 MG TABLET PO PRN (16:48)
[2022-12-04] MEDS ORDERED: BENZOCAINE/MENTHOL (CHLORASEPTIC ) LOZENGE MM PRN (16:48)
[2022-12-04] MEDS ORDERED: guaiFENesin 200 MG/10 ML 10 ML UNIT-DOSE CUPS PO PRN (16:48)
[2022-12-04] MEDS ORDERED: ACETAMINOPHEN 325 MG TABLET (FP) PO PRN ×2 (16:48)
[2022-12-04] MEDS ORDERED: ONDANSETRON *ODT* 4 MG TABLET SL PRN (16:48)
[2022-12-04] MEDS ORDERED: P-EPHED 60MG/TRIPROLIDI 2.5MG TABLET PO PRN (16:48)
[2022-12-04] MEDS ORDERED: diazePAM 5 MG TABLET PO PRN (18:22)
[2022-12-04] MEDS: ASPIRIN 81 MG CHEWABLE TABLETS PO SCH (19:00)
[2022-12-04] MEDS: MELATONIN 5 MG TABLETS PO PRN (22:47)
[2022-12-04] MEDS: GABAPENTIN 100 MG CAPSULE PO SCH (22:47)
[2022-12-04] MEDS: THIAMINE HCL 100 MG TABLET (FP) PO SCH (22:47)
[2022-12-04] MEDS: levETIRAcetam 500 MG TABLET (FP) PO SCH (22:47)
[2022-12-05] MEDS: GABAPENTIN 100 MG CAPSULE PO SCH ×3 (06:12→22:11)
[2022-12-05] MEDS ORDERED: LORazepam 1 MG TABLET PO PRN (08:03)
[2022-12-05] MEDS: PRENATAL VITAMINS W/ FOLIC ACID TABLET (FP) PO SCH (09:35)
[2022-12-05] MEDS: levETIRAcetam 500 MG TABLET (FP) PO SCH ×2 (09:35→22:11)
[2022-12-05] MEDS: ASPIRIN 81 MG CHEWABLE TABLETS PO SCH (09:35)
[2022-12-05] MEDS: metoPROLOL SUCCINATE 25 MG TAB.SR.24H (FP) PO SCH (09:35)
[2022-12-05] MEDS: LORazepam 2 MG TABLET PO SCH ×3 (10:31→22:11)
[2022-12-05 12:11] LABS: HEMATOCRIT 28.3 % (35.4-49); HEMOGLOBIN 9.6 GM/dL (11.7-16.9); MCH 30.1 pg (25.7-33.7); MCHC 33.8 g/dl (32.0-35.9); MEAN CELL VOLUME 89.2 fl (80-96); MEAN PLT VOLUME 6.9 fl (7.5-11.1); PLATELET COUNT 173 10^3/uL (134-434); RBC 3.18 M/mm3 (4.00-5.60); RDW 16.8 % (11.9-15.9); WHITE BLOOD COUNT 3.1 K/mm3 (4.0-10.0)
[2022-12-05 12:20] LABS: ALBUMIN 3.3 g/dl (3.4-5.0); BLOOD UREA NITROGEN 24.9 mg/dL (7-18); CALCIUM 8.7 mg/dL (8.5-10.1)
[2022-12-05 12:23] LABS: CREATININE 0.9 mg/dL (0.55-1.3)
[2022-12-05 12:24] LABS: BILIRUBIN,TOTAL 0.4 mg/dL (0.2-1)
[2022-12-05 12:25] LABS: TOT PROT 7.5 g/dl (6.4-8.2)
[2022-12-05] MEDS: THIAMINE HCL 100 MG TABLET (FP) PO SCH (22:11)
[2022-12-05] MEDS: MELATONIN 5 MG TABLETS PO PRN (22:11)
[2022-12-06] MEDS: GABAPENTIN 100 MG CAPSULE PO SCH ×3 (05:36→22:04)
[2022-12-06] MEDS: LORazepam 2 MG TABLET PO SCH ×4 (05:36→22:04)
[2022-12-06] MEDS: PRENATAL VITAMINS W/ FOLIC ACID TABLET (FP) PO SCH (10:14)
[2022-12-06] MEDS: levETIRAcetam 500 MG TABLET (FP) PO SCH ×2 (10:15→22:04)
[2022-12-06] MEDS: ASPIRIN 81 MG CHEWABLE TABLETS PO SCH (10:15)
[2022-12-06] MEDS: metoPROLOL SUCCINATE 25 MG TAB.SR.24H (FP) PO SCH (10:15)
[2022-12-06 14:58] LABS: CALCIUM 8.6 mg/dL (8.5-10.1)
[2022-12-06 15:01] LABS: ALBUMIN 3.1 g/dl (3.4-5.0); BILIRUBIN,TOTAL 0.3 mg/dL (0.2-1); BLOOD UREA NITROGEN 18.9 mg/dL (7-18); TOT PROT 6.8 g/dl (6.4-8.2)
[2022-12-06 15:03] LABS: CREATININE 0.9 mg/dL (0.55-1.3)
[2022-12-06] MEDS: THIAMINE HCL 100 MG TABLET (FP) PO SCH (22:04)
[2022-12-06] MEDS: MELATONIN 5 MG TABLETS PO PRN (22:04)
[2022-12-07] MEDS: GABAPENTIN 100 MG CAPSULE PO SCH ×3 (05:27→22:22)
[2022-12-07] MEDS: LORazepam 1 MG TABLET PO SCH ×4 (05:28→22:22)
[2022-12-07] MEDS: levETIRAcetam 500 MG TABLET (FP) PO SCH ×2 (10:13→22:22)
[2022-12-07] MEDS: PRENATAL VITAMINS W/ FOLIC ACID TABLET (FP) PO SCH (10:13)
[2022-12-07] MEDS: metoPROLOL SUCCINATE 25 MG TAB.SR.24H (FP) PO SCH (10:13)
[2022-12-07] MEDS: ASPIRIN 81 MG CHEWABLE TABLETS PO SCH (10:13)
[2022-12-07] MEDS: LACTULOSE 20 GM/30 ML UDC (FOR ORAL USE ONLY) PO SCH ×2 (17:44→22:23)
[2022-12-07] MEDS: THIAMINE HCL 100 MG TABLET (FP) PO SCH (22:23)
[2022-12-07] MEDS: MELATONIN 5 MG TABLETS PO PRN (22:23)
[2022-12-08] MEDS ORDERED: LORazepam 0.5 MG TABLET PO PRN
[2022-12-08] MEDS: GABAPENTIN 100 MG CAPSULE PO SCH ×3 (05:41→22:15)
[2022-12-08] MEDS: LORazepam 0.5 MG TABLET PO SCH ×4 (05:41→22:15)
[2022-12-08] MEDS: metoPROLOL SUCCINATE 25 MG TAB.SR.24H (FP) PO SCH (10:09)
[2022-12-08] MEDS: levETIRAcetam 500 MG TABLET (FP) PO SCH ×2 (10:09→22:15)
[2022-12-08] MEDS: PRENATAL VITAMINS W/ FOLIC ACID TABLET (FP) PO SCH (10:09)
[2022-12-08] MEDS: LACTULOSE 20 GM/30 ML UDC (FOR ORAL USE ONLY) PO SCH ×4 (10:09→22:14)
[2022-12-08] MEDS: ASPIRIN 81 MG CHEWABLE TABLETS PO SCH (10:12)
[2022-12-08] MEDS: THIAMINE HCL 100 MG TABLET (FP) PO SCH (22:14)
[2022-12-08] MEDS: MELATONIN 5 MG TABLETS PO PRN (22:14)
[2022-12-09] MEDS ORDERED: LORazepam 0.5 MG TABLET PO ONE (05:00)
[2022-12-09] MEDS: GABAPENTIN 100 MG CAPSULE PO SCH (05:20)
[2022-12-09 09:33] VITALS: BP 126/84; PULSE 95; RESP 16; TEMP 97
[2022-12-09] MEDS: levETIRAcetam 500 MG TABLET (FP) PO SCH (10:16)
[2022-12-09] MEDS: LACTULOSE 20 GM/30 ML UDC (FOR ORAL USE ONLY) PO SCH (10:16)
[2022-12-09] MEDS: PRENATAL VITAMINS W/ FOLIC ACID TABLET (FP) PO SCH (10:16)
[2022-12-09] MEDS: ASPIRIN 81 MG CHEWABLE TABLETS PO SCH (10:16)
[2022-12-09] MEDS: metoPROLOL SUCCINATE 25 MG TAB.SR.24H (FP) PO SCH (10:16)
== END 2022-12-09 11:42 | disposition other institution (70) | DRG 775 ==
LOC: YASAS 13:20 → Y3N 17:11
PROVIDERS: ADMIT Allergy & Immunology; ATTEND Surgery
PROC: HZ2ZZZZ Detoxification Services for Substance Abuse Treatment (ICD-10-PCS; principal; 2022-12-04)
DX: F10.230 Alcohol dependence with withdrawal, uncomplicated (principal); F10.220 Alcohol dependence with intoxication, uncomplicated; F17.210 Nicotine dependence, cigarettes, uncomplicated; D64.9 Anemia, unspecified; R79.89 Other specified abnormal findings of blood chemistry; Z28.310 Unvaccinated for COVID-19; Z28.9 Immunization not carried out for unspecified reason
CPT/HCPCS: 36415; 71046-TC-FY; 80053; 82140; 82607; 82746; 83036; 83540; 83550; 85027; 85045; 86780; 87811; 93005; 93010; C9803-CS; U0003; U0005

== ENCOUNTER 2022-12-09 12:03 | Inpatient (IN) | payer OTHER ==
[2022-12-09] MEDS ORDERED: BENZOCAINE/MENTHOL (CHLORASEPTIC ) LOZENGE MM PRN (14:33)
[2022-12-09] MEDS ORDERED: NICOTINE 10 MG CARTRIDGE (INHALER) IH PRN (14:33)
[2022-12-09] MEDS ORDERED: ACETAMINOPHEN 325 MG TABLET (FP) PO PRN (14:33)
[2022-12-09] MEDS ORDERED: POLYETHYLENE GLYCOL (HEALTHYLAX) 3350 17 GM PACKET PO PRN (14:33)
[2022-12-09] MEDS ORDERED: MAGNESIUM HYDROX 2400MG/30ML ORAL SUSPENSION 30 ML CUP PO PRN (14:33)
[2022-12-09] MEDS ORDERED: P-EPHED 60MG/TRIPROLIDI 2.5MG TABLET PO PRN (14:33)
[2022-12-09] MEDS ORDERED: LOPERAMIDE HCL 2 MG CAPSULE PO PRN (14:33)
[2022-12-09] MEDS ORDERED: guaiFENesin 200 MG/10 ML 10 ML UNIT-DOSE CUPS PO PRN (14:33)
[2022-12-09] MEDS: THIAMINE HCL 100 MG TABLET (FP) PO SCH (21:11)
[2022-12-09] MEDS: MELATONIN 5 MG TABLETS PO SCH (21:11)
[2022-12-09] MEDS: GABAPENTIN 100 MG CAPSULE PO SCH (21:12)
[2022-12-09] MEDS: LACTULOSE 20 GM/30 ML UDC (FOR ORAL USE ONLY) PO SCH (21:12)
[2022-12-09] MEDS: levETIRAcetam 500 MG TABLET (FP) PO SCH (21:12)
[2022-12-10] MEDS: GABAPENTIN 100 MG CAPSULE PO SCH ×3 (06:18→21:12)
[2022-12-10] MEDS: LACTULOSE 20 GM/30 ML UDC (FOR ORAL USE ONLY) PO SCH ×2 (10:11→21:12)
[2022-12-10] MEDS: levETIRAcetam 500 MG TABLET (FP) PO SCH ×2 (10:11→21:12)
[2022-12-10] MEDS: metoPROLOL SUCCINATE 25 MG TAB.SR.24H (FP) PO SCH (10:11)
[2022-12-10] MEDS: ASPIRIN 81 MG CHEWABLE TABLETS PO SCH (10:11)
[2022-12-10] MEDS: PRENATAL VITAMINS W/ FOLIC ACID TABLET (FP) PO SCH (10:12)
[2022-12-10] MEDS: MELATONIN 5 MG TABLETS PO SCH (21:12)
[2022-12-10] MEDS: hydrOXYzine PAMOATE 25 MG CAPSULE (FP) PO PRN (21:12)
[2022-12-10] MEDS: THIAMINE HCL 100 MG TABLET (FP) PO SCH (21:12)
[2022-12-11] MEDS: GABAPENTIN 100 MG CAPSULE PO SCH ×3 (06:25→21:08)
[2022-12-11] MEDS: LACTULOSE 20 GM/30 ML UDC (FOR ORAL USE ONLY) PO SCH ×2 (09:50→21:08)
[2022-12-11] MEDS: metoPROLOL SUCCINATE 25 MG TAB.SR.24H (FP) PO SCH (09:50)
[2022-12-11] MEDS: ASPIRIN 81 MG CHEWABLE TABLETS PO SCH (09:51)
[2022-12-11] MEDS: PRENATAL VITAMINS W/ FOLIC ACID TABLET (FP) PO SCH (09:51)
[2022-12-11] MEDS: levETIRAcetam 500 MG TABLET (FP) PO SCH ×2 (09:51→21:08)
[2022-12-11] MEDS: hydrOXYzine PAMOATE 25 MG CAPSULE (FP) PO PRN (21:08)
[2022-12-11] MEDS: THIAMINE HCL 100 MG TABLET (FP) PO SCH (21:08)
[2022-12-11] MEDS: MELATONIN 5 MG TABLETS PO SCH (21:08)
[2022-12-12] MEDS: GABAPENTIN 100 MG CAPSULE PO SCH ×3 (06:09→21:24)
[2022-12-12] MEDS: levETIRAcetam 500 MG TABLET (FP) PO SCH ×2 (10:12→21:24)
[2022-12-12] MEDS: PRENATAL VITAMINS W/ FOLIC ACID TABLET (FP) PO SCH (10:12)
[2022-12-12] MEDS: ASPIRIN 81 MG CHEWABLE TABLETS PO SCH (10:12)
[2022-12-12] MEDS: LACTULOSE 20 GM/30 ML UDC (FOR ORAL USE ONLY) PO SCH ×2 (10:13→21:23)
[2022-12-12] MEDS: metoPROLOL SUCCINATE 25 MG TAB.SR.24H (FP) PO SCH (10:13)
[2022-12-12] MEDS: MELATONIN 5 MG TABLETS PO SCH (21:24)
[2022-12-12] MEDS: THIAMINE HCL 100 MG TABLET (FP) PO SCH (21:24)
[2022-12-12] MEDS: hydrOXYzine PAMOATE 25 MG CAPSULE (FP) PO PRN (21:24)
[2022-12-13] MEDS: GABAPENTIN 100 MG CAPSULE PO SCH ×3 (06:32→21:11)
[2022-12-13] MEDS: ASPIRIN 81 MG CHEWABLE TABLETS PO SCH (09:54)
[2022-12-13] MEDS: LACTULOSE 20 GM/30 ML UDC (FOR ORAL USE ONLY) PO SCH ×3 (09:54→21:11)
[2022-12-13] MEDS: levETIRAcetam 500 MG TABLET (FP) PO SCH ×2 (09:55→21:11)
[2022-12-13] MEDS: PRENATAL VITAMINS W/ FOLIC ACID TABLET (FP) PO SCH (09:55)
[2022-12-13] MEDS: metoPROLOL SUCCINATE 25 MG TAB.SR.24H (FP) PO SCH (09:56)
[2022-12-13] MEDS: MELATONIN 5 MG TABLETS PO SCH (21:10)
[2022-12-13] MEDS: THIAMINE HCL 100 MG TABLET (FP) PO SCH (21:10)
[2022-12-14] MEDS: GABAPENTIN 100 MG CAPSULE PO SCH ×3 (06:18→21:25)
[2022-12-14] MEDS: LACTULOSE 20 GM/30 ML UDC (FOR ORAL USE ONLY) PO SCH ×3 (06:18→21:25)
[2022-12-14] MEDS: ASPIRIN 81 MG CHEWABLE TABLETS PO SCH (09:38)
[2022-12-14] MEDS: metoPROLOL SUCCINATE 25 MG TAB.SR.24H (FP) PO SCH (09:38)
[2022-12-14] MEDS: levETIRAcetam 500 MG TABLET (FP) PO SCH ×2 (09:38→21:25)
[2022-12-14] MEDS: PRENATAL VITAMINS W/ FOLIC ACID TABLET (FP) PO SCH (09:39)
[2022-12-14 11:04] LABS: ALBUMIN 3.4 g/dl (3.4-5.0); BLOOD UREA NITROGEN 26.8 mg/dL (7-18); CALCIUM 9.1 mg/dL (8.5-10.1)
[2022-12-14 11:09] LABS: BILIRUBIN,TOTAL 0.3 mg/dL (0.2-1); TOT PROT 7.5 g/dl (6.4-8.2)
[2022-12-14] MEDS: MELATONIN 5 MG TABLETS PO SCH (21:25)
[2022-12-14] MEDS: THIAMINE HCL 100 MG TABLET (FP) PO SCH (21:26)
[2022-12-14] MEDS: MAG HYDROX/AL HYDROX/SIMETH 30 ML UNIT-DOSE CUP PO PRN (21:26)
[2022-12-15] MEDS: LACTULOSE 20 GM/30 ML UDC (FOR ORAL USE ONLY) PO SCH ×3 (06:17→21:16)
[2022-12-15] MEDS: GABAPENTIN 100 MG CAPSULE PO SCH ×3 (06:17→21:16)
[2022-12-15] MEDS: ASPIRIN 81 MG CHEWABLE TABLETS PO SCH (10:03)
[2022-12-15] MEDS: PRENATAL VITAMINS W/ FOLIC ACID TABLET (FP) PO SCH (10:03)
[2022-12-15] MEDS: levETIRAcetam 500 MG TABLET (FP) PO SCH ×2 (10:03→21:16)
[2022-12-15] MEDS: metoPROLOL SUCCINATE 25 MG TAB.SR.24H (FP) PO SCH (10:04)
[2022-12-15] MEDS: THIAMINE HCL 100 MG TABLET (FP) PO SCH (21:16)
[2022-12-15] MEDS: MELATONIN 5 MG TABLETS PO SCH (21:16)
[2022-12-15] MEDS: hydrOXYzine PAMOATE 25 MG CAPSULE (FP) PO PRN (21:16)
[2022-12-16] MEDS: LACTULOSE 20 GM/30 ML UDC (FOR ORAL USE ONLY) PO SCH ×3 (06:18→21:39)
[2022-12-16] MEDS: GABAPENTIN 100 MG CAPSULE PO SCH ×3 (06:18→21:39)
[2022-12-16] MEDS: metoPROLOL SUCCINATE 25 MG TAB.SR.24H (FP) PO SCH (09:58)
[2022-12-16] MEDS: ASPIRIN 81 MG CHEWABLE TABLETS PO SCH (09:58)
[2022-12-16] MEDS: PRENATAL VITAMINS W/ FOLIC ACID TABLET (FP) PO SCH (09:58)
[2022-12-16] MEDS: levETIRAcetam 500 MG TABLET (FP) PO SCH ×2 (09:58→21:39)
[2022-12-16] MEDS: THIAMINE HCL 100 MG TABLET (FP) PO SCH (21:39)
[2022-12-16] MEDS: MELATONIN 5 MG TABLETS PO SCH (21:39)
[2022-12-16] MEDS: hydrOXYzine PAMOATE 25 MG CAPSULE (FP) PO PRN (21:39)
[2022-12-17] MEDS: GABAPENTIN 100 MG CAPSULE PO SCH ×3 (06:30→21:09)
[2022-12-17] MEDS: LACTULOSE 20 GM/30 ML UDC (FOR ORAL USE ONLY) PO SCH ×3 (06:30→21:09)
[2022-12-17] MEDS: levETIRAcetam 500 MG TABLET (FP) PO SCH ×2 (10:04→21:10)
[2022-12-17] MEDS: metoPROLOL SUCCINATE 25 MG TAB.SR.24H (FP) PO SCH (10:04)
[2022-12-17] MEDS: ASPIRIN 81 MG CHEWABLE TABLETS PO SCH (10:04)
[2022-12-17] MEDS: PRENATAL VITAMINS W/ FOLIC ACID TABLET (FP) PO SCH (10:04)
[2022-12-17] MEDS: THIAMINE HCL 100 MG TABLET (FP) PO SCH (21:09)
[2022-12-17] MEDS: MELATONIN 5 MG TABLETS PO SCH (21:10)
[2022-12-18] MEDS: LACTULOSE 20 GM/30 ML UDC (FOR ORAL USE ONLY) PO SCH ×3 (06:04→21:39)
[2022-12-18] MEDS: GABAPENTIN 100 MG CAPSULE PO SCH ×3 (06:04→21:40)
[2022-12-18] MEDS: ASPIRIN 81 MG CHEWABLE TABLETS PO SCH (10:01)
[2022-12-18] MEDS: levETIRAcetam 500 MG TABLET (FP) PO SCH ×2 (10:02→21:40)
[2022-12-18] MEDS: metoPROLOL SUCCINATE 25 MG TAB.SR.24H (FP) PO SCH (10:02)
[2022-12-18] MEDS: PRENATAL VITAMINS W/ FOLIC ACID TABLET (FP) PO SCH (10:02)
[2022-12-18] MEDS: THIAMINE HCL 100 MG TABLET (FP) PO SCH (21:39)
[2022-12-18] MEDS: hydrOXYzine PAMOATE 25 MG CAPSULE (FP) PO PRN (21:40)
[2022-12-18] MEDS: MELATONIN 5 MG TABLETS PO SCH (21:40)
[2022-12-19] MEDS: GABAPENTIN 100 MG CAPSULE PO SCH ×3 (06:15→21:29)
[2022-12-19] MEDS: MAG HYDROX/AL HYDROX/SIMETH 30 ML UNIT-DOSE CUP PO PRN (06:15)
[2022-12-19] MEDS: LACTULOSE 20 GM/30 ML UDC (FOR ORAL USE ONLY) PO SCH ×3 (06:15→21:29)
[2022-12-19] MEDS: metoPROLOL SUCCINATE 25 MG TAB.SR.24H (FP) PO SCH (10:13)
[2022-12-19] MEDS: levETIRAcetam 500 MG TABLET (FP) PO SCH ×2 (10:14→21:29)
[2022-12-19] MEDS: ASPIRIN 81 MG CHEWABLE TABLETS PO SCH (10:14)
[2022-12-19] MEDS: PRENATAL VITAMINS W/ FOLIC ACID TABLET (FP) PO SCH (10:14)
[2022-12-19] MEDS: THIAMINE HCL 100 MG TABLET (FP) PO SCH (21:29)
[2022-12-19] MEDS: hydrOXYzine PAMOATE 25 MG CAPSULE (FP) PO PRN (21:29)
[2022-12-19] MEDS: MELATONIN 5 MG TABLETS PO SCH (21:29)
[2022-12-20] MEDS: GABAPENTIN 100 MG CAPSULE PO SCH ×3 (06:14→21:29)
[2022-12-20] MEDS: LACTULOSE 20 GM/30 ML UDC (FOR ORAL USE ONLY) PO SCH ×3 (06:14→21:28)
[2022-12-20] MEDS: ASPIRIN 81 MG CHEWABLE TABLETS PO SCH (10:18)
[2022-12-20] MEDS: levETIRAcetam 500 MG TABLET (FP) PO SCH ×2 (10:18→21:29)
[2022-12-20] MEDS: metoPROLOL SUCCINATE 25 MG TAB.SR.24H (FP) PO SCH (10:19)
[2022-12-20] MEDS: PRENATAL VITAMINS W/ FOLIC ACID TABLET (FP) PO SCH (10:19)
[2022-12-20] MEDS: THIAMINE HCL 100 MG TABLET (FP) PO SCH (21:29)
[2022-12-20] MEDS: MELATONIN 5 MG TABLETS PO SCH (21:29)
[2022-12-20] MEDS: hydrOXYzine PAMOATE 25 MG CAPSULE (FP) PO PRN (21:29)
[2022-12-21] MEDS: GABAPENTIN 100 MG CAPSULE PO SCH ×3 (06:09→21:16)
[2022-12-21] MEDS: LACTULOSE 20 GM/30 ML UDC (FOR ORAL USE ONLY) PO SCH ×3 (06:10→21:15)
[2022-12-21] MEDS: levETIRAcetam 500 MG TABLET (FP) PO SCH ×2 (10:02→21:16)
[2022-12-21] MEDS: metoPROLOL SUCCINATE 25 MG TAB.SR.24H (FP) PO SCH (10:02)
[2022-12-21] MEDS: ASPIRIN 81 MG CHEWABLE TABLETS PO SCH (10:02)
[2022-12-21] MEDS: PRENATAL VITAMINS W/ FOLIC ACID TABLET (FP) PO SCH (10:03)
[2022-12-21] MEDS: THIAMINE HCL 100 MG TABLET (FP) PO SCH (21:16)
[2022-12-21] MEDS: MELATONIN 5 MG TABLETS PO SCH (21:16)
[2022-12-21] MEDS: hydrOXYzine PAMOATE 25 MG CAPSULE (FP) PO PRN (21:18)
[2022-12-22] MEDS: GABAPENTIN 100 MG CAPSULE PO SCH (06:36)
[2022-12-22] MEDS: LACTULOSE 20 GM/30 ML UDC (FOR ORAL USE ONLY) PO SCH (06:36)
[2022-12-22 06:45] VITALS: TEMP 97.3
[2022-12-22] MEDS: PRENATAL VITAMINS W/ FOLIC ACID TABLET (FP) PO SCH (09:43)
[2022-12-22] MEDS: ASPIRIN 81 MG CHEWABLE TABLETS PO SCH (09:43)
[2022-12-22] MEDS: levETIRAcetam 500 MG TABLET (FP) PO SCH (09:43)
[2022-12-22] MEDS: metoPROLOL SUCCINATE 25 MG TAB.SR.24H (FP) PO SCH (09:43)
[2022-12-22 10:16] VITALS: BP 112/74; PULSE 81; RESP 18
== END 2022-12-22 10:49 | disposition home or self-care (01) | DRG 772 ==
LOC: YASAS 12:03 → Y3E 12:06
PROVIDERS: ADMIT Allergy & Immunology; ATTEND Allergy & Immunology
PROC: HZ42ZZZ Group Counseling for Substance Abuse Treatment, Cognitive-Behavioral (ICD-10-PCS; principal; 2022-12-09)
DX: F10.20 Alcohol dependence, uncomplicated (principal); F12.20 Cannabis dependence, uncomplicated; F17.210 Nicotine dependence, cigarettes, uncomplicated; E72.20 Disorder of urea cycle metabolism, unspecified; D50.9 Iron deficiency anemia, unspecified; Z86.69 Personal history of other diseases of the nervous system and sense organs; Z87.19 Personal history of other diseases of the digestive system; Z86.19 Personal history of other infectious and parasitic diseases; Z91.14 Patient's other noncompliance with medication regimen
CPT/HCPCS: 36415; 80053; 82140

== ENCOUNTER 2023-06-08 13:22 | Inpatient (IN) | payer OTHER ==
[2023-06-08 13:55] VITALS: BMI 21.8
[2023-06-08] MEDS ORDERED: chlordiazePOXIDE HCL 25 MG CAPSULE PO PRN (14:18)
[2023-06-08] MEDS ORDERED: levETIRAcetam 500 MG TABLET (FP) PO ONE (14:25)
[2023-06-08] MEDS: levETIRAcetam 500 MG TABLET (FP) PO SCH ×2 (14:30→22:43)
[2023-06-08] MEDS ORDERED: LORazepam 2 MG/ML SDV VIAL IM ONE (14:30)
[2023-06-08] MEDS ORDERED: DICYCLOMINE HCL 10 MG CAPSULE PO PRN (15:10)
[2023-06-08] MEDS ORDERED: MAGNESIUM HYDROX 2400MG/30ML ORAL SUSPENSION 30 ML CUP PO PRN (15:10)
[2023-06-08] MEDS ORDERED: IBUPROFEN 400 MG TABLET (FP) PO PRN (15:10)
[2023-06-08] MEDS ORDERED: POLYETHYLENE GLYCOL (HEALTHYLAX) 3350 17 GM PACKET PO PRN (15:10)
[2023-06-08] MEDS ORDERED: NICOTINE POLACRILEX 2 MG GUM BUC PRN (15:10)
[2023-06-08] MEDS ORDERED: LOPERAMIDE HCL 2 MG CAPSULE PO PRN (15:10)
[2023-06-08] MEDS ORDERED: BISMUTH SUBSALICYLATE 524 MG/30 ML PO PRN (15:10)
[2023-06-08] MEDS ORDERED: ONDANSETRON *ODT* 4 MG TABLET SL PRN (15:10)
[2023-06-08] MEDS ORDERED: P-EPHED 60MG/TRIPROLIDI 2.5MG TABLET PO PRN (15:10)
[2023-06-08] MEDS ORDERED: guaiFENesin 600 MG TABLET.ER (FP) PO PRN (15:10)
[2023-06-08] MEDS ORDERED: MAG HYDROX/AL HYDROX/SIMETH 30 ML UNIT-DOSE CUP PO PRN (15:10)
[2023-06-08] MEDS ORDERED: BENZOCAINE/MENTHOL (CHLORASEPTIC ) LOZENGE MM PRN (15:10)
[2023-06-08] MEDS ORDERED: BENZONATATE 200 MG CAPSULE PO PRN (15:10)
[2023-06-08] MEDS: ASPIRIN 81 MG CHEWABLE TABLETS PO SCH (17:36)
[2023-06-08] MEDS: chlordiazePOXIDE HCL 25 MG CAPSULE PO SCH ×2 (17:37→22:43)
[2023-06-08] MEDS: THIAMINE HCL 100 MG TABLET (FP) PO SCH (22:43)
[2023-06-08] MEDS: MELATONIN 5 MG TABLETS PO SCH (22:44)
[2023-06-09] MEDS: chlordiazePOXIDE HCL 25 MG CAPSULE PO SCH ×4 (05:44→22:42)
[2023-06-09] MEDS: hydrOXYzine PAMOATE 25 MG CAPSULE (FP) PO PRN (05:45)
[2023-06-09] MEDS: ASPIRIN 81 MG CHEWABLE TABLETS PO SCH (10:26)
[2023-06-09] MEDS: levETIRAcetam 500 MG TABLET (FP) PO SCH ×2 (10:26→22:41)
[2023-06-09] MEDS: PRENATAL VITAMINS W/ FOLIC ACID TABLET (FP) PO SCH (10:26)
[2023-06-09 10:34] LABS: POTASSIUM 3.9 mmol/L (3.5-5.1)
[2023-06-09 10:38] LABS: ALBUMIN 3.5 g/dl (3.4-5.0); CALCIUM 8.8 mg/dL (8.5-10.1)
[2023-06-09 10:39] LABS: BLOOD UREA NITROGEN 12.2 mg/dL (7-18)
[2023-06-09 10:41] LABS: CREATININE 1.1 mg/dL (0.55-1.3)
[2023-06-09 10:43] LABS: BILIRUBIN,TOTAL 1.2 mg/dL (0.2-1); TOT PROT 7.7 g/dl (6.4-8.2)
[2023-06-09 10:46] LABS: HEMATOCRIT 32.4 % (35.4-49); HEMOGLOBIN 11.1 GM/dL (11.7-16.9); MCH 31.5 pg (25.7-33.7); MCHC 34.4 g/dl (32.0-35.9); MEAN CELL VOLUME 91.6 fl (80-96); MEAN PLT VOLUME 7.6 fl (7.5-11.1); PLATELET COUNT 89 10^3/uL (134-434); RBC 3.53 M/mm3 (4.00-5.60); RDW 12.7 % (11.9-15.9); WHITE BLOOD COUNT 2.5 K/mm3 (4.0-10.0)
[2023-06-09] MEDS ORDERED: PNEUMOC 20-VAL CONJ-DIP CRM/PF 0.5 ML SYRINGE IM ONE (12:00)
[2023-06-09] MEDS: MELATONIN 5 MG TABLETS PO SCH (22:41)
[2023-06-09] MEDS: THIAMINE HCL 100 MG TABLET (FP) PO SCH (22:41)
[2023-06-09] MEDS: IBUPROFEN 600 MG TABLET (FP) PO PRN (22:41)
[2023-06-10] MEDS: IBUPROFEN 600 MG TABLET (FP) PO PRN ×2 (05:52→17:24)
[2023-06-10] MEDS: chlordiazePOXIDE HCL 25 MG CAPSULE PO SCH ×4 (05:52→22:00)
[2023-06-10] MEDS ORDERED: BACITRACIN ZINC 15 GM TUBE TOPICAL OINTMENT TP SCH (10:00)
[2023-06-10] MEDS: ASPIRIN 81 MG CHEWABLE TABLETS PO SCH (10:14)
[2023-06-10] MEDS: levETIRAcetam 500 MG TABLET (FP) PO SCH ×2 (10:15→21:54)
[2023-06-10] MEDS: PRENATAL VITAMINS W/ FOLIC ACID TABLET (FP) PO SCH (10:15)
[2023-06-10] MEDS: FERROUS SO4 325 MG TABLET (FP) PO SCH ×2 (11:56→18:03)
[2023-06-10] MEDS: CLOTRIMAZOLE 1% CREAM TP SCH (21:54)
[2023-06-10] MEDS: THIAMINE HCL 100 MG TABLET (FP) PO SCH (21:54)
[2023-06-10] MEDS: MELATONIN 5 MG TABLETS PO SCH (21:54)
[2023-06-11] MEDS ORDERED: chlordiazePOXIDE HCL 10 MG CAPSULE PO PRN
[2023-06-11] MEDS: chlordiazePOXIDE HCL 10 MG CAPSULE PO SCH ×4 (05:46→22:07)
[2023-06-11] MEDS: FERROUS SO4 325 MG TABLET (FP) PO SCH ×3 (08:47→17:26)
[2023-06-11] MEDS: IBUPROFEN 600 MG TABLET (FP) PO PRN (08:47)
[2023-06-11] MEDS: METHOCARBAMOL 500 MG TABLET PO PRN ×2 (08:48→17:26)
[2023-06-11] MEDS: levETIRAcetam 500 MG TABLET (FP) PO SCH ×2 (10:11→22:07)
[2023-06-11] MEDS: ASPIRIN 81 MG CHEWABLE TABLETS PO SCH (10:11)
[2023-06-11] MEDS: PRENATAL VITAMINS W/ FOLIC ACID TABLET (FP) PO SCH (10:11)
[2023-06-11] MEDS: CLOTRIMAZOLE 1% CREAM TP SCH ×2 (10:11→22:07)
[2023-06-11] MEDS: BACITRACIN 0.9 GM PACKET TP SCH ×2 (11:04→22:07)
[2023-06-11] MEDS: ACETAMINOPHEN 325 MG TABLET (FP) PO PRN (19:46)
[2023-06-11] MEDS: hydrOXYzine PAMOATE 25 MG CAPSULE (FP) PO PRN (19:46)
[2023-06-11] MEDS: THIAMINE HCL 100 MG TABLET (FP) PO SCH (22:07)
[2023-06-11] MEDS: MELATONIN 5 MG TABLETS PO SCH (22:09)
[2023-06-12] MEDS: chlordiazePOXIDE HCL 10 MG CAPSULE PO SCH ×2 (05:45→17:22)
[2023-06-12] MEDS: METHOCARBAMOL 500 MG TABLET PO PRN ×2 (05:46→12:08)
[2023-06-12] MEDS: ACETAMINOPHEN 325 MG TABLET (FP) PO PRN ×2 (05:46→12:08)
[2023-06-12] MEDS: FERROUS SO4 325 MG TABLET (FP) PO SCH ×3 (07:00→17:21)
[2023-06-12] MEDS: PRENATAL VITAMINS W/ FOLIC ACID TABLET (FP) PO SCH (10:17)
[2023-06-12] MEDS: ASPIRIN 81 MG CHEWABLE TABLETS PO SCH (10:17)
[2023-06-12] MEDS: levETIRAcetam 500 MG TABLET (FP) PO SCH ×2 (10:17→22:24)
[2023-06-12] MEDS: BACITRACIN 0.9 GM PACKET TP SCH ×3 (10:17→22:25)
[2023-06-12] MEDS: CLOTRIMAZOLE 1% CREAM TP SCH ×2 (10:19→22:25)
[2023-06-12] MEDS: THIAMINE HCL 100 MG TABLET (FP) PO SCH (22:24)
[2023-06-12] MEDS: MELATONIN 5 MG TABLETS PO SCH (22:25)
[2023-06-13] MEDS ORDERED: chlordiazePOXIDE HCL 10 MG CAPSULE PO ONE (05:00)
[2023-06-13] MEDS: METHOCARBAMOL 500 MG TABLET PO PRN (05:49)
[2023-06-13] MEDS: ACETAMINOPHEN 325 MG TABLET (FP) PO PRN (05:49)
[2023-06-13] MEDS: FERROUS SO4 325 MG TABLET (FP) PO SCH (07:01)
[2023-06-13 08:46] VITALS: BP 115/76; PULSE 82; RESP 18; TEMP 97.5
[2023-06-13] MEDS: ASPIRIN 81 MG CHEWABLE TABLETS PO SCH (10:50)
[2023-06-13] MEDS: levETIRAcetam 500 MG TABLET (FP) PO SCH (10:51)
[2023-06-13] MEDS: CLOTRIMAZOLE 1% CREAM TP SCH (10:51)
[2023-06-13] MEDS: BACITRACIN 0.9 GM PACKET TP SCH ×2 (10:51→10:52)
[2023-06-13] MEDS: PRENATAL VITAMINS W/ FOLIC ACID TABLET (FP) PO SCH (10:52)
== END 2023-06-13 12:15 | disposition other institution (70) | DRG 775 ==
LOC: YASAS 13:22 → Y6N 15:49
PROVIDERS: ADMIT Allergy & Immunology; ATTEND Surgery
PROC: HZ2ZZZZ Detoxification Services for Substance Abuse Treatment (ICD-10-PCS; principal; 2023-06-08)
DX: F10.230 Alcohol dependence with withdrawal, uncomplicated (principal); F12.20 Cannabis dependence, uncomplicated; F17.210 Nicotine dependence, cigarettes, uncomplicated; F10.24 Alcohol dependence with alcohol-induced mood disorder; F50.9 Eating disorder, unspecified; L85.3 Xerosis cutis; M17.0 Bilateral primary osteoarthritis of knee; Z99.89 Dependence on other enabling machines and devices; Z86.19 Personal history of other infectious and parasitic diseases; Z87.19 Personal history of other diseases of the digestive system; Z86.69 Personal history of other diseases of the nervous system and sense organs; Z56.0 Unemployment, unspecified; Z59.00 Homelessness unspecified; Z28.310 Unvaccinated for COVID-19; Z28.9 Immunization not carried out for unspecified reason
CPT/HCPCS: 36415; 80053; 85027; 86780; 87635; 87811; 90677; 93005; 93010; Q0162

== ENCOUNTER 2023-06-13 12:18 | Inpatient (IN) | payer OTHER ==
[~2023-06-13 12:18] MED LIST changes: -ACETAMINOPHEN 325 MG TABLET (FP) PO PRN; +BENZOCAINE/MENTHOL (CHLORASEPTIC ) LOZENGE MM PRN; +BENZONATATE 200 MG CAPSULE PO PRN; -MAGNESIUM CITRATE 300 ML BOTTLE PO PRN; -NICOTINE 10 MG CARTRIDGE (INHALER) IH PRN; +NICOTINE 7 MG/24 HOURS TOPICAL PATCH TD PRN; +NICOTINE POLACRILEX 2 MG GUM BUC PRN; -P-EPHED 60MG/TRIPROLIDI 2.5MG TABLET PO PRN; +POLYETHYLENE GLYCOL (HEALTHYLAX) 3350 17 GM PACKET PO PRN; -guaiFENesin 200 MG/10 ML 10 ML UNIT-DOSE CUPS PO PRN; +guaiFENesin 600 MG TABLET.ER (FP) PO PRN
[2023-06-13] MEDS: FERROUS SO4 325 MG TABLET (FP) PO SCH ×2 (12:41→17:29)
[2023-06-13 17:13] LABS: URINE APPEARANCE CLEAR; URINE BILIRUBIN NEGATIVE (NEGATIVE); URINE COLOR DK YELLOW; URINE GLUCOSE (UA) NEGATIVE (NEGATIVE); URINE KETONE TRACE (NEGATIVE); URINE LEUK ESTERASE NEGATIVE (NEGATIVE); URINE NITRITE NEGATIVE (NEGATIVE); URINE PROTEIN NEGATIVE (NEGATIVE)
[2023-06-13] MEDS: SULFAMETHOXAZOLE/TRIMETHOPRIM 800MG/160MG D.S. TABLET PO SCH (21:06)
[2023-06-13] MEDS: MELATONIN 5 MG TABLETS PO SCH (21:06)
[2023-06-13] MEDS: THIAMINE HCL 100 MG TABLET (FP) PO SCH (21:06)
[2023-06-13] MEDS: levETIRAcetam 500 MG TABLET (FP) PO SCH (21:07)
[2023-06-13] MEDS: METHOCARBAMOL 500 MG TABLET PO PRN (21:07)
[2023-06-14] MEDS: FERROUS SO4 325 MG TABLET (FP) PO SCH ×3 (07:00→18:19)
[2023-06-14] MEDS: ASPIRIN 81 MG CHEWABLE TABLETS PO SCH (09:46)
[2023-06-14] MEDS: SULFAMETHOXAZOLE/TRIMETHOPRIM 800MG/160MG D.S. TABLET PO SCH ×2 (09:46→21:06)
[2023-06-14] MEDS: PRENATAL VITAMINS W/ FOLIC ACID TABLET (FP) PO SCH (09:46)
[2023-06-14] MEDS: levETIRAcetam 500 MG TABLET (FP) PO SCH ×2 (09:46→21:06)
[2023-06-14] MEDS: ACETAMINOPHEN 325 MG TABLET (FP) PO PRN (09:47)
[2023-06-14] MEDS: THIAMINE HCL 100 MG TABLET (FP) PO SCH (21:06)
[2023-06-14] MEDS: MELATONIN 5 MG TABLETS PO SCH (21:06)
[2023-06-14] MEDS: hydrOXYzine PAMOATE 25 MG CAPSULE (FP) PO PRN (21:06)
[2023-06-14] MEDS: METHOCARBAMOL 500 MG TABLET PO PRN (21:07)
[2023-06-15] MEDS: FERROUS SO4 325 MG TABLET (FP) PO SCH ×3 (07:04→17:37)
[2023-06-15] MEDS: ASPIRIN 81 MG CHEWABLE TABLETS PO SCH (10:22)
[2023-06-15] MEDS: levETIRAcetam 500 MG TABLET (FP) PO SCH ×2 (10:22→21:24)
[2023-06-15] MEDS: PRENATAL VITAMINS W/ FOLIC ACID TABLET (FP) PO SCH (10:22)
[2023-06-15] MEDS: THIAMINE HCL 100 MG TABLET (FP) PO SCH (21:24)
[2023-06-15] MEDS: MELATONIN 5 MG TABLETS PO SCH (21:24)
[2023-06-15] MEDS: METHOCARBAMOL 500 MG TABLET PO PRN (21:24)
[2023-06-15] MEDS: hydrOXYzine PAMOATE 25 MG CAPSULE (FP) PO PRN (21:25)
[2023-06-16] MEDS: FERROUS SO4 325 MG TABLET (FP) PO SCH ×3 (07:03→17:06)
[2023-06-16] MEDS: PRENATAL VITAMINS W/ FOLIC ACID TABLET (FP) PO SCH (09:38)
[2023-06-16] MEDS: levETIRAcetam 500 MG TABLET (FP) PO SCH ×2 (09:39→21:20)
[2023-06-16] MEDS: ACETAMINOPHEN 325 MG TABLET (FP) PO PRN (09:39)
[2023-06-16] MEDS: ASPIRIN 81 MG CHEWABLE TABLETS PO SCH (09:39)
[2023-06-16] MEDS: THIAMINE HCL 100 MG TABLET (FP) PO SCH (21:21)
[2023-06-16] MEDS: MELATONIN 5 MG TABLETS PO SCH (21:21)
[2023-06-16] MEDS: hydrOXYzine PAMOATE 25 MG CAPSULE (FP) PO PRN (21:21)
[2023-06-17] MEDS: FERROUS SO4 325 MG TABLET (FP) PO SCH ×3 (07:03→17:03)
[2023-06-17] MEDS: levETIRAcetam 500 MG TABLET (FP) PO SCH ×2 (10:06→21:19)
[2023-06-17] MEDS: ASPIRIN 81 MG CHEWABLE TABLETS PO SCH (10:06)
[2023-06-17] MEDS: PRENATAL VITAMINS W/ FOLIC ACID TABLET (FP) PO SCH (10:06)
[2023-06-17] MEDS: THIAMINE HCL 100 MG TABLET (FP) PO SCH (21:19)
[2023-06-17] MEDS: hydrOXYzine PAMOATE 25 MG CAPSULE (FP) PO PRN (21:19)
[2023-06-17] MEDS: MELATONIN 5 MG TABLETS PO SCH (21:19)
[2023-06-18] MEDS: FERROUS SO4 325 MG TABLET (FP) PO SCH ×3 (07:00→18:00)
[2023-06-18] MEDS: ASPIRIN 81 MG CHEWABLE TABLETS PO SCH (09:51)
[2023-06-18] MEDS: ACETAMINOPHEN 325 MG TABLET (FP) PO PRN (09:52)
[2023-06-18] MEDS: levETIRAcetam 500 MG TABLET (FP) PO SCH ×2 (09:52→21:04)
[2023-06-18] MEDS: PRENATAL VITAMINS W/ FOLIC ACID TABLET (FP) PO SCH (09:52)
[2023-06-18] MEDS: METHOCARBAMOL 500 MG TABLET PO PRN ×2 (09:52→21:05)
[2023-06-18] MEDS: PANTOPRAZOLE 20 MG TABLET PO SCH (13:24)
[2023-06-18] MEDS: LACTULOSE 20 GM/30 ML UDC (FOR ORAL USE ONLY) PO SCH ×2 (13:25→21:04)
[2023-06-18 14:43] LABS: BASO % 1.9 % (0-2.0); EOS % 2.9 % (0-4.5); HEMATOCRIT 37.4 % (35.4-49); HEMOGLOBIN 12.6 GM/dL (11.7-16.9); LYMPH % 38.1 % (8-40); MCH 30.9 pg (25.7-33.7); MCHC 33.7 g/dl (32.0-35.9); MEAN CELL VOLUME 91.7 fl (80-96); MEAN PLT VOLUME 7.5 fl (7.5-11.1); MONO % 14.5 % (3.8-10.2); NEUT % 42.6 % (42.8-82.8); PLATELET COUNT 288 10^3/uL (134-434); RBC 4.08 M/mm3 (4.00-5.60); RDW 12.7 % (11.9-15.9); WHITE BLOOD COUNT 4.5 K/mm3 (4.0-10.0)
[2023-06-18 14:44] LABS: POTASSIUM 4.4 mmol/L (3.5-5.1)
[2023-06-18 14:46] LABS: CALCIUM 9.8 mg/dL (8.5-10.1)
[2023-06-18 14:47] LABS: ALBUMIN 4.2 g/dl (3.4-5.0); BLOOD UREA NITROGEN 32.8 mg/dL (7-18)
[2023-06-18 14:50] LABS: CREATININE 1.6 mg/dL (0.55-1.3)
[2023-06-18 14:51] LABS: BILIRUBIN,TOTAL 0.5 mg/dL (0.2-1); TOT PROT 8.6 g/dl (6.4-8.2)
[2023-06-18] MEDS: MELATONIN 5 MG TABLETS PO SCH (21:04)
[2023-06-18] MEDS: THIAMINE HCL 100 MG TABLET (FP) PO SCH (21:04)
[2023-06-19] MEDS: LACTULOSE 20 GM/30 ML UDC (FOR ORAL USE ONLY) PO SCH ×3 (06:49→21:29)
[2023-06-19] MEDS: FERROUS SO4 325 MG TABLET (FP) PO SCH ×3 (07:00→16:53)
[2023-06-19] MEDS: levETIRAcetam 500 MG TABLET (FP) PO SCH ×2 (09:03→21:29)
[2023-06-19] MEDS: ASPIRIN 81 MG CHEWABLE TABLETS PO SCH (09:03)
[2023-06-19] MEDS: PANTOPRAZOLE 20 MG TABLET PO SCH (09:04)
[2023-06-19] MEDS: PRENATAL VITAMINS W/ FOLIC ACID TABLET (FP) PO SCH (09:04)
[2023-06-19 12:09] LABS: INR 1.1 (0.83-1.09); PROTHROMBIN TIME (PATIENT) 12.8 SEC (9.7-13.0)
[2023-06-19] MEDS: MELATONIN 5 MG TABLETS PO SCH (21:29)
[2023-06-19] MEDS: THIAMINE HCL 100 MG TABLET (FP) PO SCH (21:29)
[2023-06-19] MEDS: hydrOXYzine PAMOATE 25 MG CAPSULE (FP) PO PRN (21:30)
[2023-06-20] MEDS: LACTULOSE 20 GM/30 ML UDC (FOR ORAL USE ONLY) PO SCH ×3 (06:37→21:08)
[2023-06-20] MEDS: FERROUS SO4 325 MG TABLET (FP) PO SCH ×3 (07:01→17:10)
[2023-06-20] MEDS: PANTOPRAZOLE 20 MG TABLET PO SCH (10:55)
[2023-06-20] MEDS: ASPIRIN 81 MG CHEWABLE TABLETS PO SCH (10:55)
[2023-06-20] MEDS: levETIRAcetam 500 MG TABLET (FP) PO SCH ×2 (10:55→21:09)
[2023-06-20] MEDS: PRENATAL VITAMINS W/ FOLIC ACID TABLET (FP) PO SCH (10:55)
[2023-06-20] MEDS: THIAMINE HCL 100 MG TABLET (FP) PO SCH (21:09)
[2023-06-20] MEDS: MELATONIN 5 MG TABLETS PO SCH (21:09)
[2023-06-20] MEDS: hydrOXYzine PAMOATE 25 MG CAPSULE (FP) PO PRN (21:10)
[2023-06-21] MEDS: LACTULOSE 20 GM/30 ML UDC (FOR ORAL USE ONLY) PO SCH ×3 (06:30→21:06)
[2023-06-21] MEDS: FERROUS SO4 325 MG TABLET (FP) PO SCH ×3 (07:02→17:18)
[2023-06-21] MEDS: PRENATAL VITAMINS W/ FOLIC ACID TABLET (FP) PO SCH (09:34)
[2023-06-21] MEDS: levETIRAcetam 500 MG TABLET (FP) PO SCH ×2 (09:34→21:06)
[2023-06-21] MEDS: ASPIRIN 81 MG CHEWABLE TABLETS PO SCH (09:34)
[2023-06-21] MEDS: PANTOPRAZOLE 20 MG TABLET PO SCH (09:34)
[2023-06-21] MEDS: MELATONIN 5 MG TABLETS PO SCH (21:06)
[2023-06-21] MEDS: hydrOXYzine PAMOATE 25 MG CAPSULE (FP) PO PRN (21:07)
[2023-06-21] MEDS: THIAMINE HCL 100 MG TABLET (FP) PO SCH (21:26)
[2023-06-22] MEDS: LACTULOSE 20 GM/30 ML UDC (FOR ORAL USE ONLY) PO SCH ×3 (06:10→21:08)
[2023-06-22] MEDS: FERROUS SO4 325 MG TABLET (FP) PO SCH ×3 (07:01→16:58)
[2023-06-22] MEDS: PRENATAL VITAMINS W/ FOLIC ACID TABLET (FP) PO SCH (10:15)
[2023-06-22] MEDS: ASPIRIN 81 MG CHEWABLE TABLETS PO SCH (10:15)
[2023-06-22] MEDS: levETIRAcetam 500 MG TABLET (FP) PO SCH ×2 (10:15→21:08)
[2023-06-22] MEDS: PANTOPRAZOLE 20 MG TABLET PO SCH (10:16)
[2023-06-22] MEDS: MELATONIN 5 MG TABLETS PO SCH (21:08)
[2023-06-22] MEDS: hydrOXYzine PAMOATE 25 MG CAPSULE (FP) PO PRN (21:09)
[2023-06-22] MEDS: THIAMINE HCL 100 MG TABLET (FP) PO SCH (21:09)
[2023-06-23] MEDS: LACTULOSE 20 GM/30 ML UDC (FOR ORAL USE ONLY) PO SCH ×3 (06:25→21:08)
[2023-06-23] MEDS: hydrOXYzine PAMOATE 25 MG CAPSULE (FP) PO PRN ×2 (06:26→21:09)
[2023-06-23] MEDS: FERROUS SO4 325 MG TABLET (FP) PO SCH ×3 (07:16→17:12)
[2023-06-23] MEDS: PRENATAL VITAMINS W/ FOLIC ACID TABLET (FP) PO SCH (09:18)
[2023-06-23] MEDS: levETIRAcetam 500 MG TABLET (FP) PO SCH ×2 (09:19→21:09)
[2023-06-23] MEDS: ASPIRIN 81 MG CHEWABLE TABLETS PO SCH (09:19)
[2023-06-23] MEDS: PANTOPRAZOLE 20 MG TABLET PO SCH (09:19)
[2023-06-23] MEDS: MELATONIN 5 MG TABLETS PO SCH (21:08)
[2023-06-23] MEDS: THIAMINE HCL 100 MG TABLET (FP) PO SCH (21:08)
[2023-06-24] MEDS: hydrOXYzine PAMOATE 25 MG CAPSULE (FP) PO PRN ×2 (06:20→21:03)
[2023-06-24] MEDS: LACTULOSE 20 GM/30 ML UDC (FOR ORAL USE ONLY) PO SCH ×3 (06:21→21:03)
[2023-06-24] MEDS: FERROUS SO4 325 MG TABLET (FP) PO SCH ×3 (07:03→16:42)
[2023-06-24] MEDS: PRENATAL VITAMINS W/ FOLIC ACID TABLET (FP) PO SCH (10:18)
[2023-06-24] MEDS: PANTOPRAZOLE 20 MG TABLET PO SCH (10:19)
[2023-06-24] MEDS: levETIRAcetam 500 MG TABLET (FP) PO SCH ×2 (10:19→21:03)
[2023-06-24] MEDS: ASPIRIN 81 MG CHEWABLE TABLETS PO SCH (10:19)
[2023-06-24] MEDS: THIAMINE HCL 100 MG TABLET (FP) PO SCH (21:03)
[2023-06-24] MEDS: MELATONIN 5 MG TABLETS PO SCH (21:03)
[2023-06-25] MEDS: LACTULOSE 20 GM/30 ML UDC (FOR ORAL USE ONLY) PO SCH ×3 (06:18→21:03)
[2023-06-25] MEDS: COLLOIDAL OATMEAL 1 BAR EACH TP PRN (06:22)
[2023-06-25] MEDS: AMMONIUM LACTATE 12% LOTION 225 GM BOTTLE TP PRN (06:23)
[2023-06-25] MEDS: FERROUS SO4 325 MG TABLET (FP) PO SCH ×3 (07:01→16:55)
[2023-06-25] MEDS: levETIRAcetam 500 MG TABLET (FP) PO SCH ×2 (09:50→21:03)
[2023-06-25] MEDS: PRENATAL VITAMINS W/ FOLIC ACID TABLET (FP) PO SCH (09:50)
[2023-06-25] MEDS: ASPIRIN 81 MG CHEWABLE TABLETS PO SCH (09:50)
[2023-06-25] MEDS: PANTOPRAZOLE 20 MG TABLET PO SCH (09:50)
[2023-06-25] MEDS: THIAMINE HCL 100 MG TABLET (FP) PO SCH (21:03)
[2023-06-25] MEDS: MELATONIN 5 MG TABLETS PO SCH (21:03)
[2023-06-26] MEDS: LACTULOSE 20 GM/30 ML UDC (FOR ORAL USE ONLY) PO SCH ×3 (06:17→21:13)
[2023-06-26] MEDS: hydrOXYzine PAMOATE 25 MG CAPSULE (FP) PO PRN ×2 (06:18→21:13)
[2023-06-26] MEDS: COLLOIDAL OATMEAL 1 BAR EACH TP PRN (06:19)
[2023-06-26] MEDS: FERROUS SO4 325 MG TABLET (FP) PO SCH ×3 (07:07→17:07)
[2023-06-26] MEDS: PRENATAL VITAMINS W/ FOLIC ACID TABLET (FP) PO SCH (09:59)
[2023-06-26] MEDS: PANTOPRAZOLE 20 MG TABLET PO SCH (09:59)
[2023-06-26] MEDS: ASPIRIN 81 MG CHEWABLE TABLETS PO SCH (09:59)
[2023-06-26] MEDS: NALTREXONE HCL 50 MG TABLET PO SCH (09:59)
[2023-06-26] MEDS: levETIRAcetam 500 MG TABLET (FP) PO SCH ×2 (09:59→21:13)
[2023-06-26] MEDS: THIAMINE HCL 100 MG TABLET (FP) PO SCH (21:13)
[2023-06-26] MEDS: MELATONIN 5 MG TABLETS PO SCH (21:13)
[2023-06-27] MEDS: LACTULOSE 20 GM/30 ML UDC (FOR ORAL USE ONLY) PO SCH ×3 (06:26→21:06)
[2023-06-27] MEDS: hydrOXYzine PAMOATE 25 MG CAPSULE (FP) PO PRN ×2 (06:27→21:07)
[2023-06-27] MEDS: AMMONIUM LACTATE 12% LOTION 225 GM BOTTLE TP PRN (06:28)
[2023-06-27] MEDS: FERROUS SO4 325 MG TABLET (FP) PO SCH ×3 (07:12→17:01)
[2023-06-27] MEDS: PANTOPRAZOLE 20 MG TABLET PO SCH (09:31)
[2023-06-27] MEDS: PRENATAL VITAMINS W/ FOLIC ACID TABLET (FP) PO SCH (09:31)
[2023-06-27] MEDS: ASPIRIN 81 MG CHEWABLE TABLETS PO SCH (09:31)
[2023-06-27] MEDS: NALTREXONE HCL 50 MG TABLET PO SCH (09:32)
[2023-06-27] MEDS: levETIRAcetam 500 MG TABLET (FP) PO SCH ×2 (09:32→21:07)
[2023-06-27] MEDS: THIAMINE HCL 100 MG TABLET (FP) PO SCH (21:07)
[2023-06-27] MEDS: MELATONIN 5 MG TABLETS PO SCH (21:07)
[2023-06-28] MEDS: LACTULOSE 20 GM/30 ML UDC (FOR ORAL USE ONLY) PO SCH ×3 (06:04→21:05)
[2023-06-28] MEDS: hydrOXYzine PAMOATE 25 MG CAPSULE (FP) PO PRN ×2 (06:05→21:05)
[2023-06-28] MEDS: FERROUS SO4 325 MG TABLET (FP) PO SCH ×3 (07:10→17:01)
[2023-06-28] MEDS: PRENATAL VITAMINS W/ FOLIC ACID TABLET (FP) PO SCH (10:17)
[2023-06-28] MEDS: ASPIRIN 81 MG CHEWABLE TABLETS PO SCH (10:18)
[2023-06-28] MEDS: NALTREXONE HCL 50 MG TABLET PO SCH (10:18)
[2023-06-28] MEDS: levETIRAcetam 500 MG TABLET (FP) PO SCH ×2 (10:18→21:05)
[2023-06-28] MEDS: PANTOPRAZOLE 20 MG TABLET PO SCH (10:18)
[2023-06-28] MEDS: MELATONIN 5 MG TABLETS PO SCH (21:05)
[2023-06-28] MEDS: THIAMINE HCL 100 MG TABLET (FP) PO SCH (21:05)
[2023-06-29] MEDS: LACTULOSE 20 GM/30 ML UDC (FOR ORAL USE ONLY) PO SCH ×3 (06:00→21:04)
[2023-06-29] MEDS: hydrOXYzine PAMOATE 25 MG CAPSULE (FP) PO PRN (06:01)
[2023-06-29] MEDS: AMMONIUM LACTATE 12% LOTION 225 GM BOTTLE TP PRN (06:01)
[2023-06-29] MEDS: FERROUS SO4 325 MG TABLET (FP) PO SCH ×3 (07:00→16:50)
[2023-06-29] MEDS: levETIRAcetam 500 MG TABLET (FP) PO SCH ×2 (10:03→21:04)
[2023-06-29] MEDS: PANTOPRAZOLE 20 MG TABLET PO SCH (10:03)
[2023-06-29] MEDS: NALTREXONE HCL 50 MG TABLET PO SCH (10:03)
[2023-06-29] MEDS: ASPIRIN 81 MG CHEWABLE TABLETS PO SCH (10:03)
[2023-06-29] MEDS: PRENATAL VITAMINS W/ FOLIC ACID TABLET (FP) PO SCH (10:03)
[2023-06-29] MEDS: THIAMINE HCL 100 MG TABLET (FP) PO SCH (21:04)
[2023-06-29] MEDS: MELATONIN 5 MG TABLETS PO SCH (21:04)
[2023-06-30] MEDS: LACTULOSE 20 GM/30 ML UDC (FOR ORAL USE ONLY) PO SCH ×3 (06:32→21:12)
[2023-06-30] MEDS: FERROUS SO4 325 MG TABLET (FP) PO SCH ×3 (07:08→17:04)
[2023-06-30] MEDS: levETIRAcetam 500 MG TABLET (FP) PO SCH ×2 (09:39→21:12)
[2023-06-30] MEDS: PANTOPRAZOLE 20 MG TABLET PO SCH (09:39)
[2023-06-30] MEDS: PRENATAL VITAMINS W/ FOLIC ACID TABLET (FP) PO SCH (09:39)
[2023-06-30] MEDS: NALTREXONE HCL 50 MG TABLET PO SCH (09:39)
[2023-06-30] MEDS: ASPIRIN 81 MG CHEWABLE TABLETS PO SCH (09:39)
[2023-06-30] MEDS: THIAMINE HCL 100 MG TABLET (FP) PO SCH (21:12)
[2023-06-30] MEDS: hydrOXYzine PAMOATE 25 MG CAPSULE (FP) PO PRN (21:12)
[2023-06-30] MEDS: MELATONIN 5 MG TABLETS PO SCH (21:12)
[2023-07-01] MEDS: LACTULOSE 20 GM/30 ML UDC (FOR ORAL USE ONLY) PO SCH ×3 (06:23→21:28)
[2023-07-01] MEDS: FERROUS SO4 325 MG TABLET (FP) PO SCH ×3 (07:03→17:25)
[2023-07-01] MEDS: ASPIRIN 81 MG CHEWABLE TABLETS PO SCH (09:33)
[2023-07-01] MEDS: NALTREXONE HCL 50 MG TABLET PO SCH (09:33)
[2023-07-01] MEDS: PANTOPRAZOLE 20 MG TABLET PO SCH (09:33)
[2023-07-01] MEDS: levETIRAcetam 500 MG TABLET (FP) PO SCH ×2 (09:33→21:28)
[2023-07-01] MEDS: PRENATAL VITAMINS W/ FOLIC ACID TABLET (FP) PO SCH (09:33)
[2023-07-01] MEDS: hydrOXYzine PAMOATE 25 MG CAPSULE (FP) PO PRN (21:28)
[2023-07-01] MEDS: MELATONIN 5 MG TABLETS PO SCH (21:28)
[2023-07-01] MEDS: THIAMINE HCL 100 MG TABLET (FP) PO SCH (21:28)
[2023-07-02] MEDS: LACTULOSE 20 GM/30 ML UDC (FOR ORAL USE ONLY) PO SCH ×3 (06:22→21:25)
[2023-07-02] MEDS: AMMONIUM LACTATE 12% LOTION 225 GM BOTTLE TP PRN (06:24)
[2023-07-02] MEDS: FERROUS SO4 325 MG TABLET (FP) PO SCH ×3 (07:04→17:38)
[2023-07-02] MEDS: levETIRAcetam 500 MG TABLET (FP) PO SCH ×2 (09:20→21:25)
[2023-07-02] MEDS: PRENATAL VITAMINS W/ FOLIC ACID TABLET (FP) PO SCH (09:20)
[2023-07-02] MEDS: PANTOPRAZOLE 20 MG TABLET PO SCH (09:20)
[2023-07-02] MEDS: NALTREXONE HCL 50 MG TABLET PO SCH (09:20)
[2023-07-02] MEDS: ASPIRIN 81 MG CHEWABLE TABLETS PO SCH (09:20)
[2023-07-02] MEDS: hydrOXYzine PAMOATE 25 MG CAPSULE (FP) PO PRN (21:25)
[2023-07-02] MEDS: MELATONIN 5 MG TABLETS PO SCH (21:25)
[2023-07-02] MEDS: THIAMINE HCL 100 MG TABLET (FP) PO SCH (21:25)
[2023-07-03] MEDS: LACTULOSE 20 GM/30 ML UDC (FOR ORAL USE ONLY) PO SCH ×3 (06:02→21:03)
[2023-07-03] MEDS: FERROUS SO4 325 MG TABLET (FP) PO SCH ×3 (07:01→18:09)
[2023-07-03] MEDS: NALTREXONE HCL 50 MG TABLET PO SCH (10:00)
[2023-07-03] MEDS: PRENATAL VITAMINS W/ FOLIC ACID TABLET (FP) PO SCH (10:00)
[2023-07-03] MEDS: levETIRAcetam 500 MG TABLET (FP) PO SCH ×2 (10:00→21:03)
[2023-07-03] MEDS: ASPIRIN 81 MG CHEWABLE TABLETS PO SCH (10:00)
[2023-07-03] MEDS: PANTOPRAZOLE 20 MG TABLET PO SCH (10:01)
[2023-07-03] MEDS: THIAMINE HCL 100 MG TABLET (FP) PO SCH (21:03)
[2023-07-03] MEDS: MELATONIN 5 MG TABLETS PO SCH (21:03)
[2023-07-03] MEDS: hydrOXYzine PAMOATE 25 MG CAPSULE (FP) PO PRN (21:04)
[2023-07-04] MEDS: LACTULOSE 20 GM/30 ML UDC (FOR ORAL USE ONLY) PO SCH ×3 (06:04→21:06)
[2023-07-04] MEDS: FERROUS SO4 325 MG TABLET (FP) PO SCH ×3 (07:11→17:07)
[2023-07-04] MEDS: PANTOPRAZOLE 20 MG TABLET PO SCH (09:45)
[2023-07-04] MEDS: ASPIRIN 81 MG CHEWABLE TABLETS PO SCH (09:45)
[2023-07-04] MEDS: PRENATAL VITAMINS W/ FOLIC ACID TABLET (FP) PO SCH (09:46)
[2023-07-04] MEDS: levETIRAcetam 500 MG TABLET (FP) PO SCH ×2 (09:46→21:07)
[2023-07-04] MEDS ORDERED: NALTREXONE MICROSPHERES (VIVITROL) 380 MG DISP.SYRIN IM ONE (10:00)
[2023-07-04] MEDS: THIAMINE HCL 100 MG TABLET (FP) PO SCH (21:07)
[2023-07-04] MEDS: MELATONIN 5 MG TABLETS PO SCH (21:07)
[2023-07-04] MEDS: hydrOXYzine PAMOATE 25 MG CAPSULE (FP) PO PRN (21:07)
[2023-07-05] MEDS: LACTULOSE 20 GM/30 ML UDC (FOR ORAL USE ONLY) PO SCH ×3 (06:15→21:09)
[2023-07-05] MEDS: FERROUS SO4 325 MG TABLET (FP) PO SCH ×3 (07:04→17:35)
[2023-07-05] MEDS: PRENATAL VITAMINS W/ FOLIC ACID TABLET (FP) PO SCH (09:59)
[2023-07-05] MEDS: ASPIRIN 81 MG CHEWABLE TABLETS PO SCH (10:00)
[2023-07-05] MEDS: PANTOPRAZOLE 20 MG TABLET PO SCH (10:00)
[2023-07-05] MEDS: levETIRAcetam 500 MG TABLET (FP) PO SCH ×2 (10:00→21:09)
[2023-07-05] MEDS: NALTREXONE HCL 50 MG TABLET PO SCH (10:01)
[2023-07-05] MEDS ORDERED: ARTIFICIAL TEARS (POLYVINYL ALCOHOL) OPTH DROPS OU PRN (12:17)
[2023-07-05] MEDS: MELATONIN 5 MG TABLETS PO SCH (21:09)
[2023-07-05] MEDS: hydrOXYzine PAMOATE 25 MG CAPSULE (FP) PO PRN (21:09)
[2023-07-05] MEDS: THIAMINE HCL 100 MG TABLET (FP) PO SCH (21:09)
[2023-07-06] MEDS: LACTULOSE 20 GM/30 ML UDC (FOR ORAL USE ONLY) PO SCH ×3 (06:19→21:14)
[2023-07-06] MEDS: FERROUS SO4 325 MG TABLET (FP) PO SCH ×3 (07:05→17:20)
[2023-07-06] MEDS: ASPIRIN 81 MG CHEWABLE TABLETS PO SCH (09:43)
[2023-07-06] MEDS: PRENATAL VITAMINS W/ FOLIC ACID TABLET (FP) PO SCH (09:43)
[2023-07-06] MEDS: levETIRAcetam 500 MG TABLET (FP) PO SCH ×2 (09:43→21:14)
[2023-07-06] MEDS: PANTOPRAZOLE 20 MG TABLET PO SCH (09:43)
[2023-07-06] MEDS: NALTREXONE HCL 50 MG TABLET PO SCH (09:43)
[2023-07-06] MEDS: hydrOXYzine PAMOATE 25 MG CAPSULE (FP) PO PRN ×2 (09:44→21:14)
[2023-07-06] MEDS: THIAMINE HCL 100 MG TABLET (FP) PO SCH (21:14)
[2023-07-06] MEDS: MELATONIN 5 MG TABLETS PO SCH (21:15)
[2023-07-07] MEDS: LACTULOSE 20 GM/30 ML UDC (FOR ORAL USE ONLY) PO SCH ×3 (06:34→21:25)
[2023-07-07] MEDS: COLLOIDAL OATMEAL 1 BAR EACH TP PRN (06:36)
[2023-07-07] MEDS: AMMONIUM LACTATE 12% LOTION 225 GM BOTTLE TP PRN (06:37)
[2023-07-07] MEDS: FERROUS SO4 325 MG TABLET (FP) PO SCH ×3 (07:07→16:29)
[2023-07-07] MEDS: PRENATAL VITAMINS W/ FOLIC ACID TABLET (FP) PO SCH (09:25)
[2023-07-07] MEDS: ASPIRIN 81 MG CHEWABLE TABLETS PO SCH (09:25)
[2023-07-07] MEDS: NALTREXONE HCL 50 MG TABLET PO SCH (09:25)
[2023-07-07] MEDS: PANTOPRAZOLE 20 MG TABLET PO SCH (09:25)
[2023-07-07] MEDS: hydrOXYzine PAMOATE 25 MG CAPSULE (FP) PO PRN ×2 (09:25→21:26)
[2023-07-07] MEDS: levETIRAcetam 500 MG TABLET (FP) PO SCH ×2 (09:25→21:26)
[2023-07-07] MEDS: THIAMINE HCL 100 MG TABLET (FP) PO SCH (21:26)
[2023-07-07] MEDS: MELATONIN 5 MG TABLETS PO SCH (21:26)
[2023-07-08] MEDS: LACTULOSE 20 GM/30 ML UDC (FOR ORAL USE ONLY) PO SCH ×3 (06:22→21:15)
[2023-07-08] MEDS: FERROUS SO4 325 MG TABLET (FP) PO SCH ×3 (07:17→16:47)
[2023-07-08] MEDS: levETIRAcetam 500 MG TABLET (FP) PO SCH ×2 (09:24→21:14)
[2023-07-08] MEDS: PANTOPRAZOLE 20 MG TABLET PO SCH (09:25)
[2023-07-08] MEDS: ASPIRIN 81 MG CHEWABLE TABLETS PO SCH (09:25)
[2023-07-08] MEDS: NALTREXONE HCL 50 MG TABLET PO SCH (09:25)
[2023-07-08] MEDS: PRENATAL VITAMINS W/ FOLIC ACID TABLET (FP) PO SCH (09:25)
[2023-07-08] MEDS: THIAMINE HCL 100 MG TABLET (FP) PO SCH (21:14)
[2023-07-08] MEDS: MELATONIN 5 MG TABLETS PO SCH (21:14)
[2023-07-09] MEDS: LACTULOSE 20 GM/30 ML UDC (FOR ORAL USE ONLY) PO SCH ×3 (05:54→21:17)
[2023-07-09 07:06] VITALS: RESP 18
[2023-07-09] MEDS: FERROUS SO4 325 MG TABLET (FP) PO SCH ×3 (07:12→17:27)
[2023-07-09] MEDS: levETIRAcetam 500 MG TABLET (FP) PO SCH ×2 (09:15→21:16)
[2023-07-09] MEDS: ASPIRIN 81 MG CHEWABLE TABLETS PO SCH (09:15)
[2023-07-09] MEDS: PANTOPRAZOLE 20 MG TABLET PO SCH (09:15)
[2023-07-09] MEDS: PRENATAL VITAMINS W/ FOLIC ACID TABLET (FP) PO SCH (09:15)
[2023-07-09] MEDS: hydrOXYzine PAMOATE 25 MG CAPSULE (FP) PO PRN ×2 (09:16→21:17)
[2023-07-09] MEDS ORDERED: NALTREXONE MICROSPHERES (VIVITROL) 380 MG DISP.SYRIN IM ONE (10:00)
[2023-07-09] MEDS: THIAMINE HCL 100 MG TABLET (FP) PO SCH (21:16)
[2023-07-09] MEDS: MELATONIN 5 MG TABLETS PO SCH (21:17)
[2023-07-10] MEDS: LACTULOSE 20 GM/30 ML UDC (FOR ORAL USE ONLY) PO SCH ×3 (06:06→21:09)
[2023-07-10] MEDS: FERROUS SO4 325 MG TABLET (FP) PO SCH ×3 (07:10→16:36)
[2023-07-10] MEDS: PRENATAL VITAMINS W/ FOLIC ACID TABLET (FP) PO SCH (09:36)
[2023-07-10] MEDS: PANTOPRAZOLE 20 MG TABLET PO SCH (09:36)
[2023-07-10] MEDS: levETIRAcetam 500 MG TABLET (FP) PO SCH ×2 (09:36→21:09)
[2023-07-10] MEDS: ASPIRIN 81 MG CHEWABLE TABLETS PO SCH (09:36)
[2023-07-10] MEDS: THIAMINE HCL 100 MG TABLET (FP) PO SCH (21:09)
[2023-07-10] MEDS: MELATONIN 5 MG TABLETS PO SCH (21:09)
[2023-07-11] MEDS: LACTULOSE 20 GM/30 ML UDC (FOR ORAL USE ONLY) PO SCH (06:14)
[2023-07-11] MEDS: FERROUS SO4 325 MG TABLET (FP) PO SCH (07:11)
[2023-07-11 07:13] VITALS: TEMP 97.5
[2023-07-11 09:03] VITALS: BP 126/84; PULSE 100
[2023-07-11] MEDS: ASPIRIN 81 MG CHEWABLE TABLETS PO SCH (09:06)
[2023-07-11] MEDS: PRENATAL VITAMINS W/ FOLIC ACID TABLET (FP) PO SCH (09:06)
[2023-07-11] MEDS: PANTOPRAZOLE 20 MG TABLET PO SCH (09:06)
[2023-07-11] MEDS: levETIRAcetam 500 MG TABLET (FP) PO SCH (09:06)
== END 2023-07-11 09:45 | disposition home or self-care (01) | DRG 772 ==
LOC: YASAS 12:18 → Y3W 12:19
PROVIDERS: ADMIT Allergy & Immunology; ATTEND Psychiatry & Neurology Pain Medicine
PROC: HZ42ZZZ Group Counseling for Substance Abuse Treatment, Cognitive-Behavioral (ICD-10-PCS; principal; 2023-06-13)
DX: F10.20 Alcohol dependence, uncomplicated (principal); F12.20 Cannabis dependence, uncomplicated; F17.210 Nicotine dependence, cigarettes, uncomplicated; D50.9 Iron deficiency anemia, unspecified; E72.20 Disorder of urea cycle metabolism, unspecified; B18.2 Chronic viral hepatitis C; R79.89 Other specified abnormal findings of blood chemistry; R26.89 Other abnormalities of gait and mobility; Z99.89 Dependence on other enabling machines and devices; Z86.69 Personal history of other diseases of the nervous system and sense organs; Z87.19 Personal history of other diseases of the digestive system
CPT/HCPCS: 36415; 80053; 80177; 81003; 82140; 82272; 85025; 85610; 86803; 86850; 86900; 86901; 87086; 87522; 87635; J2315